=== PATIENT | male | born 1950 | race Caucasian/White ===

== ENCOUNTER 2023-03-31 00:33 | Inpatient (IN) | payer MEDICARE, SELFPAY ==
[2023-03-31] VITALS (29 sets, daily range): BP systolic 93–142; BP diastolic 56–87; PULSE 53–89; RESP 16–24; TEMP 36.2–37.9; O2SAT 88–99; BMI 38.2; BMI 37.9
[2023-03-31 01:03] LABS: Basophils Percent Auto 0.3 % (0.0-3.0); Eosinophils Percent Auto 0.2 % (0.0-7.0); Hemoglobin* 15.6 gm/dL (13.5-17.5); Immature Granulocytes Pct Auto 0.3 %; Lymphocytes Percent Auto 12.8 % (20-44); Mean Corpuscular HGB Conc 33 gm/dL (32-36); Mean Corpuscular Hemoglobin 30 pg (26-34); Mean Corpuscular Volume 89 fL (80-100); Monocytes Percent Auto 5.3 % (0.0-11.0); Neutrophils Percent Auto 81.1 % (42.0-72.0); Platelet Count* 216 K/uL (140-440); RDW Coefficient of Variation % 13.1 % (11.5-15.5); Red Blood Count 5.27 m/uL (4.30-5.90); White Blood Count* 14.45 K/uL (4.50-11.00)
[2023-03-31 01:04] LABS: Chloride* 108 mmol/L (96-114)
[2023-03-31 01:05] LABS: Sodium* 140 mmol/L (135-149)
[2023-03-31 01:06] LABS: Lactate* 1.1 mmol/L (0.5-1.9)
[2023-03-31 01:06] LABS: Slide Review Reflex No
[2023-03-31 01:07] LABS: Creatinine* 0.9 mg/dL (0.5-1.5); Est. Creatinine Clearance* 69.96; Estimated Glomerular Filt Rate 91 ml/min
[2023-03-31 01:08] LABS: Anion Gap 8 mEq/L (7-15); Blood Urea Nitrogen* 22 mg/dL (7-30); Calcium* 9.3 mg/dL (8.4-10.6); Carbon Dioxide* 24 mmol/L (20-32); Glucose* 139 mg/dL (60-115)
--- NOTE | 2023-03-31 01:08 | CRLHL7_ITS ---
For Patients: As a result of the Century Cures Act, medical imaging exams and procedure reports are released immediately into your electronic medical record. You may view this report before your referring provider. If you have questions, please contact your health care provider. INDICATION: Right lower quadrant pain. COMPARISON: None available. TECHNIQUE: CT examination of the abdomen and pelvis was performed with the uneventful intravenous administration of 131 cc of Isovue 370. while 3 mm thick axial sections were obtained from the lung bases through the pubic symphysis. Oral contrast was not administered. Please note that all CT scans at this facility use dose modulation, iterative reconstruction, and/or weight-based dosing when appropriate to reduce radiation dose to as low as reasonably achievable. FINDINGS: In the abdomen, the liver, spleen, pancreas, and adrenals are normal in appearance. There are several parapelvic cysts in the left kidney. The right kidney is normal in appearance. The gallbladder is normal in appearance. The abdominal aorta is normal in caliber with no sign of dilatation. There is no sign of retroperitoneal mass or adenopathy. There is a small hiatal hernia. The rest of the stomach, loops of small bowel, and colon in the abdomen are otherwise normal in appearance. There is a tiny fat containing umbilical hernia. The appendix is mildly dilated at 10 millimeters, with moderate thickening of its painting. There is an appendicular with at the base of the appendix. There is prominent periappendiceal inflammatory stranding, especially proximally, with mild fluid around the base of the appendix. This suggests ruptured appendicitis without distinct abscess formation. There is a small amount of free fluid in the inferior pelvis which is probably related to the fluid around the appendix. There is no sign of any extraluminal gas and no sign of any free air. There is moderate sigmoid diverticulosis without evidence of diverticulitis. The loops of small bowel and rectum in the pelvis are otherwise normal in appearance. The prostate is normal in appearance. The urinary bladder is normal in appearance. There is no sign of pelvic or inguinal mass or adenopathy. There is no sign of free air or free fluid in the abdomen or pelvis. There is mild patchy density in the posterior right lung base and in the posterior and lateral left lung base, probably atelectasis. There is mild anterior wedging of the T8 through T11 vertebral bodies, mild compression fractures of indeterminate age. There is mild L3-4 disc degenerative disease. I discussed the findings with Dr. Hunter at 0156 hours on 03/31/2023. IMPRESSION: CT of the pelvis shows findings of acute appendicitis with fluid around the base of the appendix suggesting rupture. Small amount of free fluid in the pelvis more inferiorly at the midline is probably related to this possible rupture. No sign of an organized abscess. Moderate sigmoid diverticulosis with no sign of diverticulitis. CT of the abdomen shows a small hiatal hernia. Please note that all CT scans at this facility use dose modulation, iterative reconstruction, and/or weight-based dosing when appropriate to reduce radiation dose to as low as reasonably achievable. Dictated by Harris Villafuerte MD @ 03/31/2023 2:02:54 AM (Electronically Signed)
--- NOTE | 2023-03-31 01:13 | ED.GENADULT ---
HPI - General Adult General Chief complaint: Abdominal Pain Stated complaint: Abdominal Pain Time Seen by Provider: 03/31/23 00:51 Source: patient, family and EMS Mode of arrival: EMS History of Present Illness HPI narrative: 72-year-old male with no chronic medical problems presents to the emergency department with right lower quadrant abdominal pain, severe in nature that started at 7:30 a.m. this morning. He was eating pizza at the time. Was accompanied by some mild nausea but no vomiting. No blood in his stools, recent normal bowel movements, no sick contacts, no trauma or injury. Pain is focal, points to the far right lower quadrant area of the abdomen. Reports that it does not radiate. Pain is improved from 7/10 to 2/10 but worsens again with movement after receiving a total of 2 mg of Dilaudid from EMS services. Did have similar symptoms a few months ago that was accompanied by vomiting but resolved without medical intervention or seeking care. He reports that he has a known history of a hernia in his periumbilical area but notes no swelling. No recent fevers, no dysuria. No prior history of abdominal surgeries. He did not try any other interventions at home prior to calling EMS. Past medical history he reports is benign, no major long-term health problems. No long-term prescription medications, no allergies. He has a nonsmoker, denies recent alcohol intake. ROS is notable for the GI symptoms as above only, otherwise denies times 12 systems. Including negative for skin, urinary, musculoskeletal changes. Related Data Home Medications Medication Instructions Recorded Confirmed No Known Home Medications 03/31/23 03/31/23 Allergies Allergy/AdvReac Type Severity Reaction Status Date / Time No Known Drug Allergies Allergy Verified 03/31/23 01:22 [facility] Medical History (Updated 03/31/23 @ 02:09 by Janell Hunter MD) No significant past medical history Surgical History (Updated 03/31/23 @ 02:01 by Alejandro Levin RN) No significant past surgical history Social History Smoking Status: Never smoker Second hand tobacco smoke exposure: No How often do you have a drink containing alcohol: never How often do you have six or more drinks on one occasion: Never AUDIT-C Alcohol total score: 0 Non-prescribed substance use: denies use Exam Const: Vital Signs, click to edit/add: Vital Signs - 24 hr 03/31/23 00:48 03/31/23 00:48 03/31/23 00:48 Temperature 98.2 F Pulse Rate Pulse Rate [Right Pulse Oximeter] 89 Respiratory Rate 18 Blood Pressure Blood Pressure [Ri ght Upper Arm] 137/87 Pulse Oximetry 88 94 94 Oxygen Delivery Me thod Room Air Nasal Cannula Oxygen Flow Rate 2 03/31/23 02:02 Temperature 98.2 F Pulse Rate 63 Pulse Rate [Right Pulse Oximeter] Respiratory Rate 16 Blood Pressure 129/84 Blood Pressure [Ri ght Upper Arm] Pulse Oximetry 99 Oxygen Delivery Me thod Oxygen Flow Rate Documenting provider has reviewed patient's vital signs: yes Other: Mild distress due to pain. moderate historian, likely an effect of the Dilaudid. HENMT: Common normals: normocephalic Head and scalp: normocephalic Face and sinus: normal facial exam Mouth: oral and palatal mucosa normal Throat: posterior oropharynx normal Eye: Common normals: conjunctivae normal General eye: normal appearance of both eyes Conjunctiva: conjunctiva(e) normal Neck & C-Spine: Common normals: no lymphadenopathy Resp: Common normals: normal respiratory effort, no use of accessory muscles and clear to auscultation bilaterally Effort & inspection: able to speak in complete sentences Auscultation: clear to auscultation bilaterally Cardio: Common normals: regular rate, regular rhythm, S1 normal heart sound, S2 normal heart sound and no murmurs Rate: regular rate Rhythm: regular rhythm Heart sounds: S1 normal and S2 normal GI: Other: Bowel sounds are hypoactive. There is a periumbilical hernia that does not seem incarcerated. There is no obvious swelling. He is exhibiting focal tenderness to the right lower quadrant and mild diffuse tenderness otherwise. Guarding is noted in the right lower quadrant. No swelling in the scrotum. No palpable abnormalities in inguinal region. : Common normals: no CVA tenderness and no scrotal swelling Bladder/kidney exam: no CVA tenderness Back & Pelvis: Common normals: no CVA tenderness Extremity: Common normals: normal capillary refill Neuro: Speech: speech normal Motor exam: no movement abnormalities noted Psych: Attitude: calm and engaged Insight: fair Judgement: judgment good Skin: Common normals: no rashes or lesions noted General skin exam: no rashes or lesions noted Course Course Hospital Course: Differential diagnosis including obstruction, appendicitis, diverticulitis, volvulus, incarcerated hernia, pancreatitis, musculoskeletal etiology, among others. No skin findings to suggest shingles. Recommend placing IV, continuing Dilaudid for pain, will give 4 mg of Zofran for the nausea and administer IV fluids while we obtain lab studies and CT scan of the abdomen and pelvis. Reevaluation(s) Time of Reevaluation #1: 02:09 Reevaluation #1: Discussed CT findings with patient, acute appendicitis with possible early rupture. Will start Zosyn. Discussed case with Dr. Hanks. She anticipates appendectomy this morning prior to 1st scheduled case. Will need to admit to the hospitalist team. EKG ordered. Time of Reevaluation #2: 02:15 Reevaluation #2: EKG reviewed, reassuring. Medically cleared for surgery at this time with no additional perioperative recommendations. Will remain NPO, on LR maintenance fluid, awaiting admission and surgery later this morning. Time of Reevaluation #3: 02:17 Reevaluation #3: Accepted by the hospitalist. Planning for surgery at 6:00 a.m. Vital Signs Vital signs: Initial Vital Signs Temperature 98.2 F 03/31/23 00:48 Temperature Source Temporal Artery Scan 03/31/23 00:48 Pulse Rate 89 03/31/23 00:48 Respiratory Rate 18 03/31/23 00:48 Blood Pressure 137/87 03/31/23 00:48 Blood Pressure Mean 103 03/31/23 00:48 Blood Pressure Position Supine 03/31/23 00:48 Pulse Oximetry 88 03/31/23 00:48 Oxygen Delivery Method Room Air 03/31/23 00:48 Oxygen Flow Rate 2 03/31/23 00:48 Vital Signs Temperature 98.2 F 03/31/23 00:48 Pulse Rate 89 03/31/23 00:48 Respiratory Rate 18 03/31/23 00:48 Blood Pressure 137/87 03/31/23 00:48 Pulse Oximetry 88 03/31/23 00:48 Oxygen Delivery Method Room Air 03/31/23 00:48 Oxygen Flow Rate 2 03/31/23 00:48 Temperature 98.2 F 03/31/23 02:02 Pulse Rate 63 03/31/23 02:02 Respiratory Rate 16 03/31/23 02:02 Blood Pressure 129/84 03/31/23 02:02 Pulse Oximetry 99 03/31/23 02:02 Oxygen Delivery Method Nasal Cannula 03/31/23 00:48 Oxygen Flow Rate 2 03/31/23 00:48 Medical Decision Making Lab Data Lab results reviewed: Yes I reviewed the patient's lab results Lab results narrative: Leukocytosis without elevation of CRP. Elevated absolute neutrophil count, normal lactate. Good electrolytes and kidney function. Other than over concentrated urine, not suspicious for infection or other significant pathology. Labs: Lab Results 03/31/23 03/31/23 03/31/23 Range/Units 00:10 00:45 01:20 WBC 14.45 H (4.50-11.00) K/uL RBC 5.27 (4.30-5.90) m/uL Hgb 15.6 (13.5-17.5) gm/dL Hct 47.0 (37.0-53.0) % MCV 89 (80-100) fL MCH 30 (26-34) pg MCHC 33 (32-36) gm/dL RDW Coeff of Johann 13.1 (11.5-15.5) % Plt Count 216 (140-440) K/uL Neut % (Auto) 81.1 H (42.0-72.0) % Lymph % (Auto) 12.8 L (20-44) % Garza % (Auto) 5.3 (0.0-11.0) % Eos % (Auto) 0.2 (0.0-7.0) % Baso % (Auto) 0.3 (0.0-3.0) % Neut # (Auto) 11.70 H (1.7-7.0) K/uL Lymph # (Auto) 1.80 (0.90-2.90) K/uL Garza # (Auto) 0.80 (0.00-0.90) K/UL Eos # (Auto) 0.00 (0.00-0.50) K/uL Baso # (Auto) 0.00 (0.00-0.30) K/uL Abs Immat Gran (auto) 0.00 (0.00-0.30) K/uL Imm/Tot Granulo (auto) 0.3 % Sodium 140 (135-149) mmol/L Potassium 4.0 (3.6-5.1) mmol/L Chloride 108 (96-114) mmol/L Carbon Dioxide 24 (20-32) mmol/L Anion Gap 8 (7-15) mEq/L BUN 22 (7-30) mg/dL Creatinine 0.9 (0.5-1.5) mg/dL Estimated Creat Clear 69.96 Estimated GFR 91 ml/min Glucose 139 H (60-115) mg/dL Lactate 1.1 (0.5-1.9) mmol/L Calcium 9.3 (8.4-10.6) mg/dL Total Bilirubin 0.7 (0.1-1.5) mg/dL Direct Bilirubin 0.1 (0.0-0.5) mg/dL AST 39 H (12-35) U/L ALT 34 (4-50) U/L Alkaline Phosphatase 82 (40-150) U/L C-Reactive Protein < 0.5 L (0.5-1.0) mg/dL Total Protein 7.5 (6.0-8.3) g/dL Albumin 4.0 (3.3-5.0) g/dL Amylase 63 (18-89) U/L Urine Color Yellow (Yellow) Urine Appearance Clear (Clear) Urine pH 5.5 (5.0-8.5) Ur Specific [place] >= 1.030 (1.000-1.030) Urine Protein Negative (Negative) Urine Glucose (UA) Negative (Negative) Urine Ketones Negative (Negative) Urine Blood Trace-intact A (Negative) Urine Nitrite Negative (Negative) Urine Bilirubin Negative (Negative) Urine Urobilinogen 0.2 (0.2-1.0) Ur Leukocyte Esterase Negative (Negative) Urine RBC 0-2 (0-2) Urine WBC 0-2 (0-5) Ur Squamous Epith Cells Few (None-Few) Urine Bacteria Few A (None) Urine Mucus Few A (None) Imaging Data CT scan - abdomen: Attestation: I have reviewed the pertinent imaging results. My impression: Acute appendicitis, no obstruction Radiologist's impression: IMPRESSION: CT of the pelvis shows findings of acute appendicitis with fluid around the base of the appendix suggesting rupture. Small amount of free fluid in the pelvis more inferiorly at the midline is probably related to this possible rupture. No sign of an organized abscess. Moderate sigmoid diverticulosis with no sign of diverticulitis. CT of the abdomen shows a small hiatal hernia. ECG Data Attestation: I personally reviewed and interpreted this ECG as follows: Prior ECG tracings: not available for review Interpretation: Normal sinus rhythm, rate 65. Normal axis. No significant ST or T-wave abnormalities. Single PVC noted. Normal EKG Discharge Plan Discharge Clinical Impression: Acute appendicitis with rupture Patient Disposition: Admitted As Inpatient
[2023-03-31] MEDS: ONDANSETRON 2 MG/ML inj 4 MG IVP ×2 (01:21→05:08)
[2023-03-31] MEDS: 0.9 % SODIUM CHLORIDE 1000 ml 1,000 ML IV (01:22)
[2023-03-31 01:24] LABS: Amylase* 63 U/L (18-89)
[2023-03-31 01:24] LABS: Appearance Urine Clear (Clear); Bilirubin Urine Negative (Negative); Blood Urine Trace-intact (Negative); Color Urine Yellow (Yellow); Glucose Urine Negative (Negative); Ketones Urine Negative (Negative); Leukocyte Esterase Urine Negative (Negative); Nitrite Urine Negative (Negative); Protein Urine Negative (Negative); Specific Gravity Urine >= 1.030 (1.000-1.030); Urobilinogen Urine 0.2 (0.2-1.0); pH Urine 5.5 (5.0-8.5)
[2023-03-31 01:25] LABS: Alanine Aminotransferase* 34 U/L (4-50); Alkaline Phosphatase* 82 U/L (40-150); Aspartate Amino Transferase* 39 U/L (12-35); Bilirubin Direct* 0.1 mg/dL (0.0-0.5); Bilirubin Total* 0.7 mg/dL (0.1-1.5); Total Protein* 7.5 g/dL (6.0-8.3)
[2023-03-31 01:28] LABS: C Reactive Protein* < 0.5 mg/dL (0.5-1.0)
[2023-03-31 01:34] LABS: Bacteria Urine Few; Mucus Urine Few; RBC Urine 0-2 (0-2); Squamous Epithelial Cell Urine Few (None-Few); WBC Urine 0-2 (0-5)
[2023-03-31] MEDS: PIPERACILLIN/TAZOBACTAM 3.375 GM in 0.9 % SODIUM CHLORIDE Mini-bag 100 ML IVPB ×4 (02:09→23:47)
[2023-03-31] MEDS: HYDROmorphone 0.5 mg/0.5 ml inj IVP ×2 (02:14→05:02)
--- NOTE | 2023-03-31 03:55 | P.IMPN_ITS ---
Subjective Date Seen: 03/31/23 Interval history: Remy Carringtonist eHospitalist was contacted with request of consultation on Zackery Mathis. 72-year-old gentleman with no significant past medical history who presented to the hospital complaining of sudden onset of right lower abdominal pain, progress ively worsening, associated with subjective fever and nausea. Patient denies having shaking chills, vomiting or diarrhea. Pain became severe that he had to call 911. At the time of my evaluation, his pain was much better. Home Medications: see EMR Pertinent Medical History: See EMR Pertinent Social History: See EMR Exam (performed via interactive video with assistance of bedside nurse; Camila): General: alert, cooperative, no acute distress HEENT: oral mucosa pink and moist without erythema Lungs: clear to auscultation bilaterally without crackle or wheeze CV: regular rate and rhythm without loud murmur rub or gallop Abd: RLQ tenderness, LLQ tenderness Ext: no pitting edema noted Skin: no rashes, bruises or lesions. Neuro: alert, oriented x 3. facial muscles grossly intact, moves all extremities without any significant focal deficit appreciated by nurse Labs and imaging were reviewed. Assessment and Plan: Acute appendicitis with concern for early rupture CT scan was reviewed ED team contacted general surgery who recommended surgery early in the morning Keep n.p.o. IV fluid Pain control Continue Zosyn Thank you for including Remy Trinidad in the patients care. This service is available for further assistance as requested by your care team by calling [phone]. Exam Const: Vital Signs, click to edit/add: Vital Signs - 24 hr 03/31/23 00:48 03/31/23 00:48 03/31/23 00:48 Temperature 98.2 F Pulse Rate Pulse Rate [Right Pulse Oximeter] 89 Respiratory Rate 18 Blood Pressure Blood Pressure [Ri ght Upper Arm] 137/87 Pulse Oximetry 88 94 94 Oxygen Delivery Me thod Room Air Nasal Cannula Oxygen Flow Rate 2 03/31/23 02:02 03/31/23 02:32 03/31/23 02:48 Temperature 98.2 F 98.2 F 98.2 F Pulse Rate 63 66 Pulse Rate [Right Pulse Oximeter] 79 Respiratory Rate 16 16 16 Blood Pressure 129/84 125/76 Blood Pressure [Ri ght Upper Arm] 125/74 Pulse Oximetry 99 99 99 Oxygen Delivery Me thod Nasal Cannula Oxygen Flow Rate 2 Labs Labs: Laboratory Results - last 24 hr 03/31/23 03/31/23 03/31/23 00:10 00:45 01:20 WBC 14.45 H RBC 5.27 Hgb 15.6 Hct 47.0 MCV 89 MCH 30 MCHC 33 RDW Coeff of Johann 13.1 Plt Count 216 Neut % (Auto) 81.1 H Lymph % (Auto) 12.8 L [place] % (Auto) 5.3 Eos % (Auto) 0.2 Baso % (Auto) 0.3 Neut # (Auto) 11.70 H Lymph # (Auto) 1.80 [place] # (Auto) 0.80 Eos # (Auto) 0.00 Baso # (Auto) 0.00 Abs Immat Gran (auto) 0.00 Imm/Tot Granulo (auto) 0.3 Sodium 140 Potassium 4.0 Chloride 108 Carbon Dioxide 24 Anion Gap 8 BUN 22 Creatinine 0.9 Estimated Creat Clear 69.96 Estimated GFR 91 Glucose 139 H Lactate 1.1 Calcium 9.3 Total Bilirubin 0.7 Direct Bilirubin 0.1 AST 39 H ALT 34 Alkaline Phosphatase 82 C-Reactive Protein < 0.5 L Total Protein 7.5 Albumin 4.0 Amylase 63 Urine Color Yellow Urine Appearance Clear Urine pH 5.5 Ur Specific [place] >= 1.030 Urine Protein Negative Urine Glucose (UA) Negative Urine Ketones Negative Urine Blood Trace-intact A Urine Nitrite Negative Urine Bilirubin Negative Urine Urobilinogen 0.2 Ur Leukocyte Esterase Negative Urine RBC 0-2 Urine WBC 0-2 Ur Squamous Epith Cells Few Urine Bacteria Few A Urine Mucus Few A
[2023-03-31] MEDS: LACTATED RINGERS 1000 ML 1,000 ML 125 ML IV (04:08)
--- NOTE | 2023-03-31 06:16 | PC.NURSE ---
Patient to the unit at 0300. PRN Dilaudid x1 for pain. Zofran x1 for nausea. Pedrito at bedside and supportive. NPO.
[2023-03-31] MEDS: CEFAZOLIN 2 GM INJ IVP (06:34)
[2023-03-31] MEDS: BUPIVACAINE 0.25% 30 ML 20 ML INJECTION (06:54)
--- NOTE | 2023-03-31 06:59 | SUR.OPER ---
PATIENT QUESTIONS ANSWERED SATISFACTORILY PREOPERATIVELY. PATIENT BROUGHT TO OR #3 PER CART. Patient positioned supine on OR #3 bed. The perioperative team supported arms bilaterally on arm boards. Final approval of positioning by surgeon.
--- NOTE | 2023-03-31 08:31 | P.ANES_ITS ---
Anesthesia Charges Start Date/Time Anesthesia Start Date: 03/31/23 Anesthesia Start Time: 06:31 Stop Date/Time Anesthesia Stop Date: 03/31/23 Anesthesia Stop Time: 08:15 Summary Emergency: [facility] Extremes of Age - Over 70 or under 1: [facility]
--- NOTE | 2023-03-31 08:31 | W.ANESCHARGE ---
Anesthesia Charges Start Date/Time Anesthesia Start Date: 03/31/23 Anesthesia Start Time: 06:31 Stop Date/Time Anesthesia Stop Date: 03/31/23 Anesthesia Stop Time: 08:15 Summary Emergency: [facility] Extremes of Age - Over 70 or under 1: P[facility] MOLDER
[2023-03-31] MEDS: fentaNYL 100 MCG/2 ML inj 50 MCG IVP (08:46)
--- NOTE | 2023-03-31 08:58 | PM.GSCN ---
History of Present Illness Consult details Date Seen: 03/31/23 Consult date: 03/31/23 Narrative: Patient presented to the emergency department with worsening right lower quadrant abdominal pain. He states that the pain started around 730 last evening and worsened in intensity. He has had similar pain, about 6 months earlier, but does report that that was associated with persistent nausea and did resolve on its own. This pain has not gotten better, he does report a decrease in appetite but no nausea or vomiting. Denies any diarrhea or constipation. He has never had abdominal surgery before. He is otherwise healthy. Review of Systems Status of ROS: Reports: 6 or more systems reviewed and unremarkable except as noted in History and below [facility] Medical History (Updated 03/31/23 @ 02:09 by Janell Hunter MD) No significant past medical history Surgical History (Updated 03/31/23 @ 02:01 by Alejandro Levin RN) No significant past surgical history Social History What is your current living situation?: I presently have a place to live Problems where you live: no known problems Problems where you live details: n/a In the past 12 months, utilities in danger of being shut off: no In the past 12 mos, have been you worried that your food would run out before you had money to buy more?: never true In the past 12 mos, the food you bought just didn't last and you didn't have money to buy more?: never true Highest level of school completed/degree received: some college, no degree Smoking Status: Never smoker Do you use any of these nicotine containing products: None Second hand tobacco smoke exposure: No How often do you have a drink containing alcohol: never How often do you have six or more drinks on one occasion: Never AUDIT-C Alcohol total score: 0 Non-prescribed substance use: denies use Caffeine: Yes How often does anyone, including family, friends and others, physically hurt you: never How often does anyone, including family, friends and others, insult or talk down to you: never How often does anyone, including family, friends and others, threaten you with harm: never How often does anyone, including family, friends and others, scream or curse at you: never service: Yes Meds Home Medications and Allergies Home Medications Medication Instructions Recorded Confirmed Type No Known Home Medications 03/31/23 03/31/23 History Allergies Allergy/AdvReac Type Severity Reaction Status Date / Time No Known Drug Allergies Allergy Verified 03/31/23 01:22 Exam Narrative: Exam Narrative: General: Alert and oriented, no acute distress. Nontoxic in appearance Respiratory: Equal breath rise, maintained on room air. Clear breath sounds bilaterally CV: Regular rhythm rate, well perfused Abdomen: Soft, mild distention guarding with some rebound in the right lower quadrant. Const: Vital Signs, click to edit/add: Vital Signs - 24 hr 03/31/23 00:48 03/31/23 00:48 03/31/23 00:48 Temperature 98.2 F Pulse Rate Pulse Rate [Pulse Oximeter] Pulse Rate [Right Pulse Oximeter] 89 Respiratory Rate 18 Blood Pressure Blood Pressure [Ri ght Arm] Blood Pressure [Ri ght Upper Arm] 137/87 Pulse Oximetry 88 94 94 Oxygen Delivery Me thod Room Air Nasal Cannula Oxygen Flow Rate 2 03/31/23 02:02 03/31/23 02:32 03/31/23 02:48 Temperature 98.2 F 98.2 F 98.2 F Pulse Rate 63 66 Pulse Rate [Pulse Oximeter] Pulse Rate [Right Pulse Oximeter] 79 Respiratory Rate 16 16 16 Blood Pressure 129/84 125/76 Blood Pressure [Ri ght Arm] Blood Pressure [Ri ght Upper Arm] 125/74 Pulse Oximetry 99 99 99 Oxygen Delivery Me thod Nasal Cannula Oxygen Flow Rate 2 03/31/23 04:26 03/31/23 05:14 03/31/23 08:15 Temperature 97.3 F L 97.2 F L 98.4 F Pulse Rate 71 Pulse Rate [Pulse Oximeter] 69 67 Pulse Rate [Right Pulse Oximeter] Respiratory Rate 20 22 24 Blood Pressure 121/66 Blood Pressure [Ri ght Arm] 142/85 H 131/80 Blood Pressure [Ri ght Upper Arm] Pulse Oximetry 91 92 94 Oxygen Delivery Me thod Room Air Nasal Cannula Non Rebreather Mas k Oxygen Flow Rate 1.0 4 03/31/23 08:20 03/31/23 08:25 03/31/23 08:30 Temperature 98.7 F Pulse Rate 69 72 73 Pulse Rate [Pulse Oximeter] Pulse Rate [Right Pulse Oximeter] Respiratory Rate 24 24 24 Blood Pressure 123/61 118/66 102/68 Blood Pressure [Ri ght Arm] Blood Pressure [Ri ght Upper Arm] Pulse Oximetry 94 94 Oxygen Delivery Me thod Non Rebreather Mas k Non Rebreather Mas k Non Rebreather Mas k Oxygen Flow Rate 4 4 4 03/31/23 08:35 03/31/23 08:40 Temperature 98.5 F Pulse Rate 67 70 Pulse Rate [Pulse Oximeter] Pulse Rate [Right Pulse Oximeter] Respiratory Rate 24 24 Blood Pressure 120/65 118/67 Blood Pressure [Ri ght Arm] Blood Pressure [Ri ght Upper Arm] Pulse Oximetry 94 Oxygen Delivery Me thod Non Rebreather Mas k Non Rebreather Mas k Oxygen Flow Rate 4 4 Results Labs Labs: Abnormal lab results 03/31/23 03/31/23 Range/Units 00:45 01:20 WBC 14.45 H (4.50-11.00) K/uL Neut % (Auto) 81.1 H (42.0-72.0) % Lymph % (Auto) 12.8 L (20-44) % Neut # (Auto) 11.70 H (1.7-7.0) K/uL Glucose 139 H (60-115) mg/dL AST 39 H (12-35) U/L C-Reactive Protein < 0.5 L (0.5-1.0) mg/dL Urine Blood Trace-intact A (Negative) Urine Bacteria Few A (None) Urine Mucus Few A (None) Diabetes panel 03/31/23 Range/Units 00:45 Sodium 140 (135-149) mmol/L Potassium 4.0 (3.6-5.1) mmol/L Chloride 108 (96-114) mmol/L Carbon Dioxide 24 (20-32) mmol/L BUN 22 (7-30) mg/dL Creatinine 0.9 (0.5-1.5) mg/dL Glucose 139 H (60-115) mg/dL Calcium 9.3 (8.4-10.6) mg/dL AST 39 H (12-35) U/L ALT 34 (4-50) U/L Alkaline Phosphatase 82 (40-150) U/L Total Protein 7.5 (6.0-8.3) g/dL Albumin 4.0 (3.3-5.0) g/dL Calcium panel 03/31/23 Range/Units 00:45 Calcium 9.3 (8.4-10.6) mg/dL Albumin 4.0 (3.3-5.0) g/dL Pituitary panel 03/31/23 Range/Units 00:45 Sodium 140 (135-149) mmol/L Potassium 4.0 (3.6-5.1) mmol/L Chloride 108 (96-114) mmol/L Carbon Dioxide 24 (20-32) mmol/L BUN 22 (7-30) mg/dL Creatinine 0.9 (0.5-1.5) mg/dL Glucose 139 H (60-115) mg/dL Calcium 9.3 (8.4-10.6) mg/dL Adrenal panel 03/31/23 Range/Units 00:45 Sodium 140 (135-149) mmol/L Potassium 4.0 (3.6-5.1) mmol/L Chloride 108 (96-114) mmol/L Carbon Dioxide 24 (20-32) mmol/L BUN 22 (7-30) mg/dL Creatinine 0.9 (0.5-1.5) mg/dL Glucose 139 H (60-115) mg/dL Calcium 9.3 (8.4-10.6) mg/dL Total Bilirubin 0.7 (0.1-1.5) mg/dL AST 39 H (12-35) U/L ALT 34 (4-50) U/L Alkaline Phosphatase 82 (40-150) U/L Total Protein 7.5 (6.0-8.3) g/dL Albumin 4.0 (3.3-5.0) g/dL All other labs normal. Imaging Abdomen CT scan report/results: report reviewed and image reviewed Assessment and Plan Assessment and plan (1) Acute appendicitis with rupture: Status: Acute Plan The patient presented with a history, exam and imaging findings consistent with acute appendicitis. CT imaging was reviewed, there is some fluid around the appendix as well as several fecaliths. Concern for perforation without organized abscess. I discussed the treatment options with the patient including non-surgical and surgical options. I recommended laparoscopic appendectomy. The risks of surgery were reviewed with the patient including the risks of bleeding, post-operative wound or intra-abdominal infection, injury to abdominal structures and possible conversion to an open operation. We also discussed anesthetic complications including NV, stroke, respiratory failure and blood clots. The patient voiced an understanding of our conversation, had the opportunity to ask questions, agreed to accept the risks of surgery and asked that we proceed with surgery.
--- NOTE | 2023-03-31 09:00 | PM.GSPRC ---
Operative Note Pre-op diagnosis: Acute appendicitis Post-op diagnosis: Acute appendicitis, perforated Type of Procedure: Laparoscopic appendectomy Indications: Patient is a 72-year-old male who presented to the emergency department with clinical workup and history consistent with a acute appendicitis. Risks and benefits of operative intervention were discussed at length with the patient. Risks included but was not limited to: Bleeding, infection, risk of damage to surrounding structures, possible need for additional procedures, possible need to convert to an open operation and postoperative complications such as pneumonia, pulmonary emboli or MA. All questions and concerns were addressed with the patient agreeing to proceed. Procedure Description: After discussing the risks and benefits of the procedure, the patient signed informed consent.? The operative site was marked and the patient was brought to the operating room and placed on the operating table in supine position.? Care was taken to pad the patient's pressure points.?? The patient was then intubated by anesthesia.?? The operative site was then prepped and draped in the usual sterile fashion.? A time-out was then performed. Entrance to the abdomen was obtained via a 5 mm optical trocar in the left upper quadrant. The abdomen was insufflated and briefly surveyed for any signs of injury. There were none. There was evidence of erythema and irritation to the anterior abdominal wall within the lower pelvis. Fibrinous exudate was also apparent throughout the small bowel and purulence was seen within the pelvis. A 12 mm port was placed lateral to the umbilicus as well as a 5 mm port in the left lower quadrant under direct vision. The patient was then placed in Trendelenburg position with the right side up. The small bowel was inflamed, but able to be gently moved out of the way and the appendix was in view. There was a large amount surrounding purulence and a few small stool balls seen in the area. The stool was removed from the abdomen. The surrounding adhesions were bluntly taken down and with the use of electrocautery, taking care not to injure any surrounding bowel. There was a significant amount of surrounding inflammation and inflamed fat. The appendix tip was grasped and pulled into view. Evidence of perforation and an area of necrosis at the base of the appendix. A mesenteric window was created between the base of the appendix and the mesoappendix. A 45 mm Endo-ANIL vascular load staple was used to take the mesoappendix. The staple line was inspected for bleeding and there was none. Several bowel load staplers were used to take a small portion of the cecum, given the area of perforation at the base of the appendix. Care was taken not to impinge on the ileocecal valve. The staple line was inspected and was healthy in appearance with adequate hemostasis. The appendix was then removed from the abdomen using an Endo-Catch bag. The specimen was sent to pathology. The 12 mm port site fascia was closed with 0 Vicryl via the Adrián-Alex. All other ports removed under direct visualization. The skin was then closed with absorbable subcuticular suture. Sterile dressings were then applied. Instrument sponge and needle counts were correct at the end of the case. The patient was then woken and transported to the PACU in stable condition. Findings: Perforated appendicitis, ruptured at the base of the appendix. Anesthesia: GETA Surgeon: Britney Hanks MD Estimated blood loss (mL): 5 Specimen: Appendix Condition: stable Disposition: PACU Date of procedure: 03/31/23
[2023-03-31] MEDS: 0.9 % SODIUM CHLORIDE 1000 ml 1,000 ML 125 ML IV ×2 (09:22→19:27)
--- NOTE | 2023-03-31 09:47 | PM.IMHP1 ---
Hospitalist- H&P: HPI History of Present Illness Time Seen by Provider: 09:15 Date Seen: 03/31/23 Chief complaint: Abdominal Pain Narrative: Zackery Mathis is a 72 year old man, usually healthy, presented with chief complaint of sudden onset right lower quadrant abdominal pain, unrelenting, worsening, associated with subjective sense of fever and nausea. Denied rigors, diaphoresis, vomiting, diarrhea. No recent trauma or travel. Pain was so severe he called 911 to be brought in for assessment. Found to have acute appendicitis and possible rupture when assessed in the emergency department at [facility]. White count elevated near 15,000. CT scan of abdomen and pelvis demonstrated acute appendicitis with fluid around the base of the appendix suggestive of a rupture. Small amount of free fluid in the pelvis more inferiorly at the midline again suggestive of possible rupture. No indication of organized abscess. Moderate sigmoid diverticulosis without evidence of diverticulitis. Small hiatal hernia noted. Patient received IV antibiotic, Zosyn, then brought to the operating room. He is now back from the operating room and indicates he is feeling better. I have not had an opportunity to speak with the surgeon about his condition and a surgical note is not yet available. Review of Systems Status of ROS: Reports: 10 or more systems reviewed and unremarkable except as noted in History and below Narrative: Generally healthy. Has not seen a physician for about 10 years. Previously occasionally saw physicians with the [facility] clinic. Takes no medications except for multivitamins. Denies use of any street or recreational drugs. Physically active in able. Denies angina or anginal equivalent, syncope or near syncope, cough, dyspnea at rest, dyspnea with exertion, paroxysmal nocturnal dyspnea, orthopnea. Denies palpitations or fluttering. Denies claudication. No myalgias or arthralgias. Generally satisfied with bowel and bladder habits. [facility] Medical History No significant past medical history Surgical History (Updated 03/31/23 @ 09:44 by Delvis Rae MD) Status post colonoscopy ?Z98.890 - Other specified postprocedural states (ICD-10) History of basal cell carcinoma (BCC) excision ?Z98.890 - Other specified postprocedural states (ICD-10) ?Z85.828 - Personal history of other malignant neoplasm of skin (ICD-10) Status post total right knee replacement ?Z96.651 - Presence of right artificial knee joint (ICD-10) No significant past surgical history Family History (Updated 03/31/23 @ 09:43 by Delvis Rae MD) Father Lung cancer Mother Arthritis Social History (Updated 03/31/23 @ 09:46 by Delvis Rae MD) Narrative: Lives with . Retired. Full resuscitation in event of cardiopulmonary demise. Designates his , Sarah, as power of estate attorney for health should that be required, phone number [phone]. Has never used tobacco products. Quit drinking alcoholic beverages in 1979. What is your current living situation?: I presently have a place to live Problems where you live: no known problems Problems where you live details: n/a In the past 12 months, utilities in danger of being shut off: no In the past 12 mos, have been you worried that your food would run out before you had money to buy more?: never true In the past 12 mos, the food you bought just didn't last and you didn't have money to buy more?: never true Highest level of school completed/degree received: some college, no degree Smoking Status: Never smoker Do you use any of these nicotine containing products: None Second hand tobacco smoke exposure: No How often do you have a drink containing alcohol: never How often do you have six or more drinks on one occasion: Never AUDIT-C Alcohol total score: 0 Non-prescribed substance use: denies use Caffeine: Yes How often does anyone, including family, friends and others, physically hurt you: never How often does anyone, including family, friends and others, insult or talk down to you: never How often does anyone, including family, friends and others, threaten you with harm: never How often does anyone, including family, friends and others, scream or curse at you: never service: Yes Meds Home Medications and Allergies Home Medications Medication Instructions Recorded Confirmed Type No Known Home Medications 03/31/23 03/31/23 History Allergies Allergy/AdvReac Type Severity Reaction Status Date / Time No Known Drug Allergies Allergy Verified 03/31/23 01:22 Exam Narrative: Exam Narrative: I examined the patient postoperatively in his hospital room. He is sleepy but easily arousable and talkative. Appears comfortable. No acute distress. Vision and hearing are grossly normal. Alert and oriented to self, place, time, situation. Worried about his who has a doctor's appointment later today. Friendly, articulate, cooperative. Mood and affect are congruent. Neck is supple. Midline trachea. No JVD or hepatojugular reflux. No carotid bruits. No head and neck lymphadenopathy. Lungs are clear to auscultation. Room air oxygen saturations variable, 86% when sleepy, 92% to 1 awakened talking. Heart tones with regular rhythm, normal S1-S2, without murmur, gallop, or rub. Abdomen is soft at this time. Extremities without edema. No focal motor neurologic deficits. Able to transfer to his hospital bed with only standby assist in his sleepy state. Cranial nerves 3-12 grossly normal. Skin is dry and intact. I do not examine the surgical site. Const: Vital Signs, click to edit/add: Vital Signs - 24 hr 03/31/23 00:48 03/31/23 00:48 03/31/23 00:48 Temperature 98.2 F Pulse Rate Pulse Rate [Pulse Oximeter] Pulse Rate [Right Pulse Oximeter] 89 Respiratory Rate 18 Blood Pressure Blood Pressure [Ri ght Arm] Blood Pressure [Ri ght Upper Arm] 137/87 Pulse Oximetry 88 94 94 Oxygen Delivery Me thod Room Air Nasal Cannula Oxygen Flow Rate 2 03/31/23 02:02 03/31/23 02:32 03/31/23 02:48 Temperature 98.2 F 98.2 F 98.2 F Pulse Rate 63 66 Pulse Rate [Pulse Oximeter] Pulse Rate [Right Pulse Oximeter] 79 Respiratory Rate 16 16 16 Blood Pressure 129/84 125/76 Blood Pressure [Ri ght Arm] Blood Pressure [Ri ght Upper Arm] 125/74 Pulse Oximetry 99 99 99 Oxygen Delivery Me thod Nasal Cannula Oxygen Flow Rate 2 03/31/23 04:26 03/31/23 05:14 03/31/23 08:15 Temperature 97.3 F L 97.2 F L 98.4 F Pulse Rate 71 Pulse Rate [Pulse Oximeter] 69 67 Pulse Rate [Right Pulse Oximeter] Respiratory Rate 20 22 24 Blood Pressure 121/66 Blood Pressure [Ri ght Arm] 142/85 H 131/80 Blood Pressure [Ri ght Upper Arm] Pulse Oximetry 91 92 94 Oxygen Delivery Me thod Room Air Nasal Cannula Non Rebreather Mas k Oxygen Flow Rate 1.0 4 03/31/23 08:20 03/31/23 08:25 03/31/23 08:30 Temperature 98.7 F Pulse Rate 69 72 73 Pulse Rate [Pulse Oximeter] Pulse Rate [Right Pulse Oximeter] Respiratory Rate 24 24 24 Blood Pressure 123/61 118/66 102/68 Blood Pressure [Ri ght Arm] Blood Pressure [Ri ght Upper Arm] Pulse Oximetry 94 94 Oxygen Delivery Me thod Non Rebreather Mas k Non Rebreather Mas k Non Rebreather Mas k Oxygen Flow Rate 4 4 4 03/31/23 08:35 03/31/23 08:40 03/31/23 09:00 Temperature 98.5 F 98.8 F Pulse Rate 67 70 74 Pulse Rate [Pulse Oximeter] Pulse Rate [Right Pulse Oximeter] Respiratory Rate 24 24 16 Blood Pressure 120/65 118/67 Blood Pressure [Ri ght Arm] 117/67 Blood Pressure [Ri ght Upper Arm] Pulse Oximetry 94 Oxygen Delivery Me thod Non Rebreather Mas k Non Rebreather Mas k Room Air Oxygen Flow Rate 4 4 03/31/23 09:15 03/31/23 09:30 Temperature Pulse Rate Pulse Rate [Pulse Oximeter] 66 70 Pulse Rate [Right Pulse Oximeter] Respiratory Rate 16 16 Blood Pressure Blood Pressure [Ri ght Arm] 121/77 117/73 Blood Pressure [Ri ght Upper Arm] Pulse Oximetry 97 98 Oxygen Delivery Me thod OxyMask OxyMask Oxygen Flow Rate 4 4 Hospitalist - H&P: Result Labs Labs: Short CBC 03/31/23 Range/Units 00:45 WBC 14.45 H (4.50-11.00) K/uL Hgb 15.6 (13.5-17.5) gm/dL Hct 47.0 (37.0-53.0) % Plt Count 216 (140-440) K/uL BMP 03/31/23 00:45 Sodium 140 Potassium 4.0 Chloride 108 Carbon Dioxide 24 BUN 22 Creatinine 0.9 Glucose 139 H Calcium 9.3 Liver Function 03/31/23 Range/Units 00:45 Total Bilirubin 0.7 (0.1-1.5) mg/dL Direct Bilirubin 0.1 (0.0-0.5) mg/dL AST 39 H (12-35) U/L ALT 34 (4-50) U/L Alkaline Phosphatase 82 (40-150) U/L Albumin 4.0 (3.3-5.0) g/dL Urine 03/31/23 Range/Units 01:20 Urine Color Yellow (Yellow) Urine Appearance Clear (Clear) Urine pH 5.5 (5.0-8.5) Ur Specific [place] >= 1.030 (1.000-1.030) Urine Protein Negative (Negative) Urine Glucose (UA) Negative (Negative) ECG Attestation: I personally reviewed and interpreted this ECG as follows: ECG interpretation date: 03/31/23 ECG interpretation time: 09:30 Interpretation: Normal sinus rhythm with occasional VPC. Imaging CT scan of abdomen and pelvis: Attestation: I have reviewed the pertinent imaging results. Radiologist's impression: 03/31/2023 Appendix mildly dilated at 10 mm with moderate thickening of its painting. Prominent periappendiceal inflammatory stranding with mild fluid around the base of the appendix suggestive of ruptured appendicitis without distinct abscess formation. Moderate sigmoid diverticulosis with no sign of diverticulitis noted. Small hiatal hernia. Assessment and Plan Assessment and plan (1) Acute appendicitis with rupture: Status: Acute Plan 1. Reviewed impression with patient, , son, daughter. Answered their questions. 2. Patient subjectively much improved status post surgery. 3. Postoperatively doing well at this time. 4. Agree with ongoing antibiotics per surgery orders. 5. Hospitalist are available to support if needed. Please let hospitalist know if there is anything else we can do to support the care of this patient.
[2023-03-31] MEDS: ACETAMINOPHEN 325 MG TABLET 650 MG PO ×2 (14:30→19:32)
--- NOTE | 2023-03-31 14:30 | PC.NURSE ---
Notified Dr. Hanks that patient has a temperature of 100.3 and also very drowsy. No narcotics have been given since return from OR at 0900. Per Dr. Hanks, is too be expected on day 0, alternate tylenol/motrin and continue to monitor temperature. Drowsiness could be related to fever but could be related to anesthesia yet. Call if patient condition changes for the worse. No cultures or labs needed at this time.
--- NOTE | 2023-03-31 14:46 | PC.NURSE ---
End of shift note: Patient is a post op of today for a ruptured appendicitis. Patient returned from OR at 0900. Patient has been up to chair, ambulated to bathroom with assist of 2 due to weakness, voided X1 but was not measured but a good amount. Has been tolerating clear liquids. Denies nausea. Pain is 2/10. Ice pack to incision. Tylenol given for pain and temp of 100.3. See previous nurse note in regards to this. Patient is alert and oriented but very drowsy yet. No narcotics given since return from OR. Normal saline running at 125cc/hr. Bowel sounds are hypoactive. Lung sounds diminished- IS started for this. Patient has been on and off oxygen. When awake, no oxygen needed, but when sleeping, 2L NC needed. Patients family were here on and off today. 3 lap Incisions are clean, dry and intact. Receiving IV antibiotics. Pleasant and cooperative.
[2023-03-31] MEDS: IBUPROFEN 600 MG TABLET PO (19:31)
[2023-03-31] MEDS: BENZOCAINE/MENTHOL 1 EACH LOZENGE MUCOUS MEM (20:55)
--- NOTE | 2023-03-31 22:42 | PC.NURSE ---
End of Shift: Patient pleasant and cooperative, and drowsy all shift. Patient vitally stable, lungs clear, BS WNL, IV running NS at 125. Patient rates pain at most 3/10, tylenol and ibuprofen given once. Patient 1 assist, walker, and has been up in the chair and walked the escobar. Patient tolerating clears taking in popsicles and juice along with water. Patient was nervous to ambulate and requested walker when patient could walk independently. Patient currently sleeping comfortably in recliner. Abdominal lap sites x3 C/D/I.
[2023-04-01] MEDS: ACETAMINOPHEN 325 MG TABLET 650 MG PO ×3 (00:14→17:56)
[2023-04-01 03:00] VITALS: BP 100/65; PULSE 57; RESP 16; TEMP 36.1; O2SAT 95
[2023-04-01] MEDS: 0.9 % SODIUM CHLORIDE 1000 ml 1,000 ML 125 ML IV ×3 (03:04→20:14)
[2023-04-01] MEDS: PIPERACILLIN/TAZOBACTAM 3.375 GM in 0.9 % SODIUM CHLORIDE Mini-bag 100 ML IVPB ×4 (06:09→23:40)
--- NOTE | 2023-04-01 06:36 | PC.NURSE ---
Alert and oriented x 4. Patient reporting that he feels less groggy than when he was first out of surgery. Speech clear and appropriate. Ambulates with SBA with walker, transfers independently. Pain to abdomen reported, received PRN tylenol for discomfort and was effective. Lap sites to left abdomen free of any signs or symptoms of infection, steri strips intact. Abdomen round and tender to palpation, bowel sounds hypoactive through all quadrants. Denies any nausea or vomiting, denies passing any flatus. Tolerating liquids.
[2023-04-01 06:43] LABS: Basophils Percent Auto 0.2 % (0.0-3.0); Eosinophils Percent Auto 0.2 % (0.0-7.0); Hematocrit 42.1 % (37.0-53.0); Hemoglobin* 13.7 gm/dL (13.5-17.5); Immature Granulocytes Pct Auto 0.3 %; Lymphocytes Percent Auto 13.9 % (20-44); Mean Corpuscular HGB Conc 33 gm/dL (32-36); Mean Corpuscular Hemoglobin 30 pg (26-34); Mean Corpuscular Volume 92 fL (80-100); Neutrophils Percent Auto 81.4 % (42.0-72.0); Platelet Count* 195 K/uL (140-440); RDW Coefficient of Variation % 13.8 % (11.5-15.5); Red Blood Count 4.58 m/uL (4.30-5.90); White Blood Count* 18.83 K/uL (4.50-11.00)
[2023-04-01 06:47] LABS: Slide Review Reflex No
[2023-04-01 06:57] LABS: Chloride* 102 mmol/L (96-114); Potassium* 3.9 mmol/L (3.6-5.1); Sodium* 136 mmol/L (135-149)
[2023-04-01 07:00] LABS: Anion Gap 8 mEq/L (7-15); Blood Urea Nitrogen* 26 mg/dL (7-30); Calcium* 8.7 mg/dL (8.4-10.6); Carbon Dioxide* 26 mmol/L (20-32); Creatinine* 1.4 mg/dL (0.5-1.5); Est. Creatinine Clearance* 49.97; Estimated Glomerular Filt Rate 54 ml/min; Glucose* 91 mg/dL (60-115)
[2023-04-01 08:25] VITALS: BP 111/66; PULSE 62; RESP 18; TEMP 36.2; O2SAT 97
--- NOTE | 2023-04-01 11:25 | PM.GSPN ---
Subjective Subjective Date Seen: 04/01/23 Interval history: Patient is doing well this morning. He does have some pain at the incision sites and in the right lower quadrant, but it is better than yesterday. Most of his pain comes with ambulation and soreness of the muscles. He has been passing a copious amount of gas. He has been tolerating clear liquids and does want to advance his diet. He has been ambulating with nursing. No fevers overnight. Exam Narrative: Exam Narrative: General: Alert and oriented, no acute distress. Nontoxic in appearance. Respiratory: Equal breath rise bilaterally, maintained on room air CV: Well perfused Abdomen: Soft, appropriately tender over incision sites in the right lower quadrant with no guarding or rebound. Nondistended. Const: Vital Signs, click to edit/add: Vital Signs - 24 hr 03/31/23 12:00 03/31/23 12:57 03/31/23 13:00 Temperature 99.0 F 99.1 F 99.3 F Pulse Rate [Apical ] Pulse Rate [Pulse Oximeter] 78 70 65 Respiratory Rate 16 16 16 Blood Pressure [Ri ght Arm] 109/65 108/61 104/62 Pulse Oximetry 93 95 93 Oxygen Delivery Me thod Room Air Room Air Room Air Oxygen Flow Rate 03/31/23 14:00 03/31/23 14:30 03/31/23 15:00 Temperature 100.3 F H Pulse Rate [Apical ] Pulse Rate [Pulse Oximeter] 71 66 Respiratory Rate 16 16 Blood Pressure [Ri ght Arm] 113/64 113/68 Pulse Oximetry 94 94 96 [facility] Nasal Cannula Nasal Cannula Oxygen Flow Rate 2 2 03/31/23 15:27 03/31/23 15:27 03/31/23 15:55 Temperature 98.8 F 98.8 F Pulse Rate [Apical ] Pulse Rate [Pulse Oximeter] 64 64 Respiratory Rate 24 24 Blood Pressure [Ri ght Arm] 113/70 Pulse Oximetry 95 Oxygen Delivery Me thod Room Air Oxygen Flow Rate 03/31/23 19:33 03/31/23 23:00 04/01/23 03:00 Temperature 97.9 F 97.3 F L 96.9 F L Pulse Rate [Apical ] Pulse Rate [Pulse Oximeter] 60 53 L 57 L Respiratory Rate 24 18 16 Blood Pressure [Ri ght Arm] 128/70 93/56 L 100/65 Pulse Oximetry 92 94 95 Oxygen Delivery Me thod Room Air Room Air Room Air Oxygen Flow Rate 04/01/23 08:25 Temperature 97.1 F L Pulse Rate [Apical ] 62 Pulse Rate [Pulse Oximeter] Respiratory Rate 18 Blood Pressure [Ri ght Arm] 111/66 Pulse Oximetry 97 Oxygen Delivery Me thod Room Air Oxygen Flow Rate Labs/Imaging Labs Labs: WBC is trending up (14--18) Imaging Imaging: No new imaging Progress Note: A&P Assessment and plan (1) Acute appendicitis with rupture: Status: Acute Assessment and Plan: Patient is postop day 1 acute appendicitis with evidence of rupture. He did have some low-grade fevers postoperatively, afebrile overnight. His WBC is trending up, which is not surprising giving the amount of intra-abdominal contamination. At this time he is tolerating clear liquids and will slowly advanced diet. Will continue with IV antibiotics. -full liquids, advanced slowly -IV fluids, DC when adequate p.o. intake -continue with IV Zosyn -encourage ambulation -SCDs and Lovenox for DVT prophylaxis -IV and p.o. pain meds as needed
[2023-04-01 11:40] VITALS: BP 122/72; PULSE 60; RESP 24; TEMP 36.2; O2SAT 97
[2023-04-01] MEDS: OXYCODONE 5 MG TABLET PO ×3 (13:47→23:47)
[2023-04-01 15:00] VITALS: BP 112/67; PULSE 69; RESP 18; TEMP 36.5; O2SAT 93
[2023-04-01 19:00] VITALS: BP 111/62; PULSE 77; RESP 18; TEMP 36.8; O2SAT 93
[2023-04-01] MEDS: ENOXAPARIN 40 MG/0.4 ML INJ SUBCUT (21:13)
[2023-04-01] MEDS: HYDROmorphone 0.5 mg/0.5 ml inj IVP (21:13)
--- NOTE | 2023-04-01 22:55 | PC.NURSE ---
End of Shift: Patient pleasant and cooperative. Afebrile. Rating pain in abdomen up to 5/10 and PRN Oxycodone and Dilaudid given x1. Tolerating full liquid diet with no nausea. Passing flatus, no BM. Up to chair and walking in hallway independently, Steri-stips to abdomen intact with old dried drainage.
[2023-04-01 23:30] VITALS: BP 111/73; PULSE 64; RESP 18; TEMP 36.4; O2SAT 93
[2023-04-02] VITALS (8 sets, daily range): BP systolic 110–134; BP diastolic 66–76; PULSE 68–84; RESP 16–27; TEMP 36.5–37.1; O2SAT 92–96
[2023-04-02] MEDS: OXYCODONE 5 MG TABLET PO ×3 (04:13→14:13)
[2023-04-02] MEDS: 0.9 % SODIUM CHLORIDE 1000 ml 1,000 ML 125 ML IV (04:14)
[2023-04-02] MEDS: PIPERACILLIN/TAZOBACTAM 3.375 GM in 0.9 % SODIUM CHLORIDE Mini-bag 100 ML IVPB ×4 (05:56→23:50)
--- NOTE | 2023-04-02 08:08 | PC.NURSE ---
Pt alert and oriented x3. Afebrile. Pt reports 6/10 pain in abdomen, pain managed with PRN medications. Pt gas 3 steri strip dressing that are CDI. Pt has active bowel sounds, is voiding, and had a smear BM overnight. Pt is tolerating regular diet and is up ad chloé in room. Pt wt was taken this morning per pt request and was 274.8 lbs with standing scale. Pt requested labs be drawn this morning to ensure WBCs were treading downward after pervious blood draws elevated WBCs, headline writer updated on coming RN to notify surgeon. Pt slept intermittently throughout night.
[2023-04-02] MEDS: ACETAMINOPHEN 325 MG TABLET 650 MG PO ×3 (08:39→21:40)
[2023-04-02 09:19] LABS: Basophils Percent Auto 0.1 % (0.0-3.0); Eosinophils Percent Auto 0.4 % (0.0-7.0); Hematocrit 42.2 % (37.0-53.0); Hemoglobin* 13.7 gm/dL (13.5-17.5); Immature Granulocytes Pct Auto 0.5 %; Lymphocytes Percent Auto 10.6 % (20-44); Mean Corpuscular HGB Conc 33 gm/dL (32-36); Mean Corpuscular Hemoglobin 30 pg (26-34); Mean Corpuscular Volume 91 fL (80-100); Monocytes Percent Auto 5.2 % (0.0-11.0); Neutrophils Percent Auto 83.2 % (42.0-72.0); Platelet Count* 177 K/uL (140-440); RDW Coefficient of Variation % 13.4 % (11.5-15.5); Red Blood Count 4.62 m/uL (4.30-5.90); White Blood Count* 13.08 K/uL (4.50-11.00)
[2023-04-02 09:34] LABS: Slide Review Reflex No
--- NOTE | 2023-04-02 10:40 | PM.GSPN ---
Subjective Subjective Date Seen: 04/02/23 Interval history: Patient is doing well this morning. He states that he had a hard time sleeping last night. This morning his stomach was ?gurgling?, but feels more settled now. He has been ambulating. He does not yet feel ready to go home. No fevers overnight. Exam Narrative: Exam Narrative: General: Alert and oriented, no acute distress. Nontoxic in appearance Abdomen: Soft, appropriately tender over incision sites. Middle incision with some slight erythema surrounding it, will keep a close eye on it but no current concern for infection. Steri-Strips are in place. Const: Vital Signs, click to edit/add: Vital Signs - 24 hr 04/01/23 11:40 04/01/23 15:00 04/01/23 15:00 Temperature 97.1 F L 97.7 F Pulse Rate [Apical ] 69 69 Pulse Rate [Pulse Oximeter] 60 Respiratory Rate 24 18 18 Blood Pressure [Ri ght Arm] 122/72 112/67 Pulse Oximetry 97 93 Oxygen Delivery Me thod Room Air Room Air 04/01/23 19:00 04/01/23 23:30 04/01/23 23:30 Temperature 98.3 F 97.6 F Pulse Rate [Apical ] 64 64 Pulse Rate [Pulse Oximeter] 77 64 64 Respiratory Rate 18 18 18 Blood Pressure [Ri ght Arm] 111/62 111/73 Pulse Oximetry 93 93 Oxygen Delivery Me thod Room Air Room Air 04/02/23 04:20 04/02/23 07:00 04/02/23 08:00 Temperature 98.7 F 97.8 F Pulse Rate [Apical ] 75 Pulse Rate [Pulse Oximeter] 75 77 77 Respiratory Rate 18 27 H 27 H Blood Pressure [Ri ght Arm] 125/72 111/76 Pulse Oximetry 93 96 Oxygen Delivery Me thod Room Air Room Air Labs/Imaging Labs Labs: WBC 13, down trending Progress Note: A&P Assessment and plan (1) Acute appendicitis with rupture: Status: Acute Assessment and Plan: Patient is postop day 2 acute appendicitis with evidence of rupture. Vital signs stable and afebrile overnight. WBC is trending down, will continue IV antibiotics while inpatient and plan to transition to oral before discharge for a 10 day course. Is tolerating small bites of regular diet. -regular diet -DC IV fluids -continue with IV Zosyn, will plan to transition to Augmentin tomorrow to complete a 10 day course. -encourage ambulation -SCDs and Lovenox for DVT prophylaxis -IV and p.o. pain meds as needed Anticipate discharge tomorrow morning.
[2023-04-02] MEDS: IBUPROFEN 600 MG TABLET PO ×2 (14:12→23:57)
--- NOTE | 2023-04-02 19:26 | PC.NURSE ---
Nursing Care Hours: [id number] Pt this shift anxious in the morning d/t elevated WBC and queazy abdomen. Labs drawn and discussed with pt which eased pt anxiety. Tolerated regular diet, pain 3-4/10, treated per eMAR. Middle lap site red but no drainage. IV patent, end of shift, removed the wrap and towel around IV at end of shift and IV began bleeding under transparent dressing. Oncoming nurse notified. LS, RR tachy. IS encouraged. Independent in room. Reported a BM this morning.
[2023-04-02] MEDS: ENOXAPARIN 40 MG/0.4 ML INJ SUBCUT (21:00)
[2023-04-03 03:00] VITALS: BP 118/73; PULSE 64; RESP 18; TEMP 36.3; O2SAT 93
--- NOTE | 2023-04-03 05:44 | PC.NURSE ---
Alert and oriented x 4. Pain to abdomen reported at 2/10 throughout the shift, pain is well managed with PRN tylenol and PRN motrin. Lap sites clean dry and intact, lap site closest to midline has some redness around incision, MD aware. Ambulates independently in room. Bowel sounds active x 4 quadrants, denies any nausea or vomiting.
[2023-04-03] MEDS: PIPERACILLIN/TAZOBACTAM 3.375 GM in 0.9 % SODIUM CHLORIDE Mini-bag 100 ML IVPB (05:59)
[2023-04-03 07:30] VITALS: BP 117/65; PULSE 63; RESP 18; TEMP 36.6; O2SAT 97
[2023-04-03 11:00] VITALS: BP 129/81; PULSE 62; RESP 16; TEMP 36.1; O2SAT 98
--- NOTE | 2023-04-03 11:29 | PM.DS1 ---
DS: Providers Provider Date Seen: 04/03/23 Date of admission: 03/31/23 09:16 Primary care physician: Enid Obregon DO Admitting Clinician: Jessica Blankenship MD Attending Physician on discharge: Jessica Blankenship MD DS: Summary Hospital Course Hospital Course: Patient underwent a laparoscopic appendectomy for ruptured appendicitis. Postoperatively for his fever curve and WBC were trended and he was continued on IV antibiotics. His fever curve did improve, he was afebrile greater than 24 hours and his white blood cell count trended towards normal. At the time of discharge he was transition to oral antibiotics, to complete a 10 day course. Patient was ambulating independently, tolerating regular diet, and pain was well controlled. Patient's exam is benign. He does have some slight redness around the middle incision, no concern for infection currently but patient was instructed to call should he notice any increasing redness, increasing pain or drainage from the area. Time Spent with Patient Time attestation: Total time spent providing and/or coordinating discharge services: Exam Narrative: Exam Narrative: General: Alert and oriented, no acute distress Respiratory: Equal breath rise bilaterally, maintained on room air CV: Regular rhythm rate, well perfused Abdomen: Soft, nontender nondistended. Steri-Strips are now off of the incisions. Middle incision with some slight redness around the wound, better compared to yesterday. No current concern for infection. Const: Vital Signs, click to edit/add: Vital Signs - 24 hr 04/02/23 12:00 04/02/23 15:00 04/02/23 16:00 Temperature 97.9 F 97.7 F Pulse Rate [Pulse Oximeter] 68 68 68 Respiratory Rate 22 26 H 16 Blood Pressure [Ri t Arm] 110/74 116/66 Pulse Oximetry 92 95 Oxygen Delivery Me thod Room Air Room Air Oxygen Flow Rate 04/02/23 20:00 04/02/23 23:00 04/03/23 03:00 Temperature 97.9 F 97.8 F 97.3 F L Pulse Rate [Pulse Oximeter] 84 68 64 Respiratory Rate 20 16 18 Blood Pressure [Ri t Arm] 134/67 114/68 118/73 Pulse Oximetry 96 93 93 Oxygen Delivery Me thod Room Air Nasal Cannula Room Air Oxygen Flow Rate 04/03/23 07:30 04/03/23 07:30 Temperature 97.9 F Pulse Rate [Pulse Oximeter] 63 63 Respiratory Rate 18 18 Blood Pressure [Ri ght Arm] 117/65 Pulse Oximetry 97 Oxygen Delivery Me thod Room Air Oxygen Flow Rate 0 Discharge Plan Discharge Disposition: Home, Self-Care Date of Admission: 03/31/23 09:16 Attending Provider on Discharge: Britney Hanks Primary Care Provider: Enid Obregon Condition: Improved Anticipated Discharge Date/Time: 04/02/23 10:44 Discharge Medications: New oxycodone 5 mg tablet 5 mg PO Q6H PRN (Reason: pain) Qty: 10 0RF senna 8.6 mg capsule 8.6 mg PO DAILY PRN (Reason: constipation) Qty: 90 0RF amoxicillin-pot clavulanate 875-125 mg tablet 1 tab PO BID 8 Days Qty: 16 0RF Discharge Orders: Discharge Order (Routine); Ordered 04/03/23 Ordered By: Britney Hanks Patient Education: General Anesthesia (DC), Laparoscopic Appendectomy (DC), Post-Operative Instructions: Appendectomy Additional Instructions: Okay to shower. Do not soak in a bath or swim for 2 weeks after surgery. You were prescribed a narcotic pain medication. In addition you may supplement with Tylenol and/or ibuprofen. Be sure to not exceed greater than 4 g of Tylenol in a 24 hour period. While on narcotic pain medicine please take stool softeners. A prescription of stool softeners has been sent to the pharmacy. Stop if having greater than 2 stools per day. Activity Level: No strenuous activity Activity Detail: Activity as tolerated. Avoid strenuous activity. No lifting greater than 20 lb for 2 weeks. Discharge Diet: Regular Follow Up Appointments: Britney Hanks MD [Staff Physician] - (Two week follow-up) Enid Obregon DO [Primary Care Provider] - Forms: [facility] Info Instructions
--- NOTE | 2023-04-03 14:49 | PC.NURSE ---
Discharge note: Pt alert and oriented, pleasant and cooperative. Vitals stable, on RA. Pt states tolerable, minimal pain to abd, primarily only caused when pt coughs, pt declined need for PRN. Pt able to be ind in room, had shower in AM. Stated 2 BMs this AM. Tolerating regular diet, denying nausea. Amb well without concern. Napped intermit during shift. IV removed in AM d/t leaking. Pt cleared for d/c and will start PO abx, education given. D/C instructions reviewed with pt, questions answered, pt states awareness on new medication, f/u appt, symptoms worsening and denies questions about all other information. Pt states comfortable w/ dc'ing home w/ . Pt given WC ride to car w/ spouse to d/c home.
== END 2023-04-03 14:35 | disposition home or self-care (01) | DRG 340 ==
LOC: ED 02:38 → MEDSURG 02:51
PROVIDERS: Admitting Provider Surgery; Emergency Provider Family Medicine; PCP Family Medicine; Visit Provider Family Medicine
PROC: 0DTJ4ZZ Resection of Appendix, Percutaneous Endoscopic Approach (ICD-10-PCS; CPT 44970; principal; 2023-03-31 06:15)
DX: K35.32 Acute appendicitis with perforation, localized peritonitis, and gangrene, without abscess (principal)
CPT/HCPCS: 00840; 36415; 74177; 80048; 80053; 80076; 81003; 81015; 82150; 83605; 85025; 86140; 87086; 88304; 93005; 94761; 99100; 99140; 99284; 99285; A9270; J0330; J0665; J0690; J1100; J1170; J1650; J2250; J2405; J2543; J2704; J2710; J3010; J7030; J7120; Q9967

== ENCOUNTER 2023-04-15 14:37 | Outpatient (CLI) | payer SELFPAY ==
--- NOTE | 2023-04-15 16:00 | CRLHL7_ITS ---
For Patients: As a result of the Century Cures Act, medical imaging exams and procedure reports are released immediately into your electronic medical record. You may view this report before your referring provider. If you have questions, please contact your health care provider. Indication: POSSIBLE ABSCESS AFTER APPENDECTOMY Technique: Postcontrast CT abdomen and pelvis. 124 cc Isovue 370 intravenous contrast. Please note that all CT scans at this facility use dose modulation, iterative reconstruction, and/or weight-based dosing when appropriate to reduce radiation dose to as low as reasonably achievable. Comparison: 03/31/2023 Findings: Dependent areas of atelectasis/scarring are present within both lung bases. No free intraperitoneal air. No intrahepatic mass. No stigmata of cirrhosis. Gallbladder normal. No calcified gallstones or biliary obstruction. The spleen is normal. Normal pancreas. A hiatal hernia is present measuring 3.0 cm. No pericardial effusion. Normal adrenal glands. Incidental parapelvic cysts left kidney. Normal ureters. Bladder unremarkable. Prostate not enlarged. Status post appendectomy. Improved inflammatory changes within the right lower quadrant mesenteric fat with a few scattered remaining linear/curvilinear densities and subcentimeter lymph nodes. Interval development of a circumscribed collection of fluid and air within the lower pelvis in the midline measuring 3.2 cm. This is located adjacent to the rectum. No fracture. Degenerative changes noted. Impression: Interval development of a lower central pelvic abscess measuring 3.2 cm. Status post appendectomy with some residual inflammatory changes present in the right lower quadrant. No mechanical bowel obstruction. Discussed with Dr. Hanks 8:05 a.m. 04/16/2023. Please note that all CT scans at this facility use dose modulation, iterative reconstruction, and/or weight-based dosing when appropriate to reduce radiation dose to as low as reasonably achievable. Dictated by Pierce Daniels MD @ 04/16/2023 11:58:26 AM (Electronically Signed)
== END 2023-04-15 14:38 | disposition home or self-care (01) ==
PROVIDERS: Visit Provider Surgery
DX: T81.40XA Infection following a procedure, unspecified, initial encounter (principal); K65.1 Peritoneal abscess
CPT/HCPCS: 74177; Q9967

== ENCOUNTER 2023-04-21 15:38 | Outpatient (CLI) | payer SELFPAY ==
--- NOTE | 2023-04-21 16:00 | CRLHL7_ITS ---
For Patients: As a result of the Century Cures Act, medical imaging exams and procedure reports are released immediately into your electronic medical record. You may view this report before your referring provider. If you have questions, please contact your health care provider. INDICATION: Infection following a procedure, EVALUATE INRA AB ABSCESS sic TECHNIQUE: CT abdomen and pelvis acquired with 124 cc Isovue 370 IV contrast. COMPARISON: 04/15/2023, 03/31/2023. FINDINGS: Lower chest: Unremarkable. Liver: Unremarkable. Normal in size and attenuation. No suspicious masses. Gallbladder and bile ducts: Unremarkable. No stones or inflammation. No biliary dilatation. Pancreas: Unremarkable. No mass or inflammation. Spleen: Unremarkable. Normal in size. No masses. Adrenal glands: Unremarkable. No nodules. Kidneys: Unremarkable. No suspicious masses, stones, or hydronephrosis. Left parapelvic cysts. GI tract: Unremarkable. Normal in caliber. No sign of mass or inflammation. Normal appendix. Vasculature: Abdominal aorta is normal in caliber. Mesenteric arteries are patent. Lymph nodes: No lymphadenopathy. Peritoneum/Abdominal Wall: Unremarkable. No sign of mass or infiltration. No free air or significant free fluid. Pelvis: Interval involution of previously demonstrated rim enhancing fluid collection in the vesicorectal recess of the pelvic peritoneum with only a persistent focus of ill-defined enhancement in this region which is otherwise notable for multiple central hyperattenuating elements which were not present on the examination performed 03/31/2023 prior to appendectomy. These may represent dropped surgical clips in the pelvic peritoneal recess. Mesorectal fat stranding persists. Persistent 2 cm focal coalescent soft tissue density in the right iliac fossa mesentery (series 2; image 92), unchanged, consistent with an inflammatory phlegmon, for example. Surrounding fat stranding is associated with this finding. Bones: Unremarkable for age. IMPRESSION: Interval involution of the circumscribed rim enhancing fluid collection in the vesicorectal pelvic peritoneal recess associated with nonspecific hyperattenuating central elements which may represent dropped surgical clips but are otherwise nonspecific. Of note, these findings were not present in this location on the CT examination performed prior to the patient`s appendectomy dated 03/31/2023. Persistent inflammatory changes in the right iliac fossa mesentery and in the mesorectal fat. No other significant interval findings. Please note that all CT scans at this facility use dose modulation, iterative reconstruction, and/or weight-based dosing when appropriate to reduce radiation dose to as low as reasonably achievable. Dictated by Bhupendra Florence MD @ 04/21/2023 6:39:10 PM (Electronically Signed)
== END 2023-04-21 15:39 | disposition home or self-care (01) ==
LOC: CT 15:39
PROVIDERS: Visit Provider Surgery
DX: T81.49XA Infection following a procedure, other surgical site, initial encounter (principal)
CPT/HCPCS: 74177; Q9967

== ENCOUNTER 2023-04-23 10:30 | Outpatient (RCR) | payer SELFPAY ==
--- NOTE | 2023-04-16 08:53 | CRLHL7_ITS ---
For Patients: As a result of the Cures Act, medical imaging exams and procedure reports are released immediately into your electronic medical record. You may view this report before your referring provider. If you have questions, please contact your health care provider. Indication: Ultrasound guidance for PICC line placement. Technique: Ultrasound guidance is performed for PICC line placement. Comparison: None available Findings: Ultrasound is used to localize the right basilic vein. Ultrasound is then used to localize the right brachial vein for successful PICC placement. Impression: Ultrasound used for placement of a PICC line in the brachial vein. Dictated by Harris Villafuerte MD @ 04/17/2023 9:20:38 AM (Electronically Signed)
[2023-04-16] MEDS: 0.9 % SODIUM CHLORIDE 250 ml IV (15:04)
[2023-04-16] MEDS: ERTAPENEM 1 GM in 0.9 % SODIUM CHLORIDE Mini-bag 100 ML IVPB (15:04)
--- NOTE | 2023-04-16 15:49 | PC.NURSE ---
Patient alert and oriented, VSS. Patient had a midline placed in right arm. Antibiotic infusion started at 1500 and ended at 1534. Patient tolerated well.
[2023-04-17] MEDS: ERTAPENEM 1 GM in 0.9 % SODIUM CHLORIDE Mini-bag 100 ML IVPB (15:17)
[2023-04-17 15:20] VITALS: BP 119/72; PULSE 63; RESP 16; TEMP 36.4; O2SAT 96
[2023-04-17] MEDS: SODIUM CHLORIDE 0.9 % (FLUSH) 10 ML SYRINGE IVF (15:22)
[2023-04-17] MEDS: 0.9 % SODIUM CHLORIDE 250 ml IV (15:22)
[2023-04-18 15:00] VITALS: BP 122/80; PULSE 65; RESP 18; TEMP 36.4; O2SAT 96
[2023-04-18] MEDS: ERTAPENEM 1 GM in 0.9 % SODIUM CHLORIDE Mini-bag 100 ML IVPB (15:06)
[2023-04-18] MEDS: SODIUM CHLORIDE 0.9 % (FLUSH) 10 ML SYRINGE IVF (15:07)
[2023-04-19 15:08] VITALS: BP 113/69; PULSE 67; RESP 16; TEMP 36.2; O2SAT 99
[2023-04-19] MEDS: SODIUM CHLORIDE 0.9 % (FLUSH) 10 ML SYRINGE IVF (15:13)
[2023-04-19] MEDS: ERTAPENEM 1 GM in 0.9 % SODIUM CHLORIDE Mini-bag 100 ML IVPB (15:13)
[2023-04-19] MEDS: 0.9 % SODIUM CHLORIDE 250 ml IV (15:14)
--- NOTE | 2023-04-19 16:58 | PC.NURSE ---
pt came in for IV antibiotic. Picc line is patent. it flushed with no problems. IV infused with no problems. pt was very pleasant.
[2023-04-20 14:26] VITALS: BP 113/71; PULSE 70; RESP 16; TEMP 36.5; O2SAT 97
[2023-04-20] MEDS: 0.9 % SODIUM CHLORIDE 250 ml IV (14:41)
[2023-04-20] MEDS: ERTAPENEM 1 GM in 0.9 % SODIUM CHLORIDE Mini-bag 100 ML IVPB (14:41)
[2023-04-21 14:48] VITALS: BP 101/66; PULSE 67; RESP 16; TEMP 36.1; O2SAT 96
[2023-04-21 14:48] LABS: Basophils Absolute Auto 0.04 K/uL (0.00-0.30); Basophils Percent Auto 0.4 % (0.0-3.0); Eosinophils Absolute Auto 0.24 K/uL (0.00-0.50); Eosinophils Percent Auto 2.4 % (0.0-7.0); Hematocrit 42.5 % (37.0-53.0); Hemoglobin* 14.2 gm/dL (13.5-17.5); Immature Granulocytes Abs Auto 0.05 K/uL (0.00-0.30); Immature Granulocytes Pct Auto 0.5 %; Lymphocytes Absolute Auto 3.05 K/uL (0.90-2.90); Lymphocytes Percent Auto 29.9 % (20-44); Mean Corpuscular HGB Conc 33 gm/dL (32-36); Mean Corpuscular Hemoglobin 29 pg (26-34); Mean Corpuscular Volume 87 fL (80-100); Monocytes Percent Auto 8.2 % (0.0-11.0); Neutrophils Absolute Auto 5.97 K/uL (1.7-7.0); Neutrophils Percent Auto 58.6 % (42.0-72.0); Platelet Count* 347 K/uL (140-440); RDW Coefficient of Variation % 12.3 % (11.5-15.5); Red Blood Count 4.88 m/uL (4.30-5.90); White Blood Count* 10.19 K/uL (4.50-11.00)
[2023-04-21 14:51] LABS: Slide Review Reflex No
[2023-04-21] MEDS: ERTAPENEM 1 GM in 0.9 % SODIUM CHLORIDE Mini-bag 100 ML IVPB (15:00)
[2023-04-22 15:00] VITALS: TEMP 36.1
[2023-04-22] MEDS: ERTAPENEM 1 GM in 0.9 % SODIUM CHLORIDE Mini-bag 100 ML IVPB (15:22)
[2023-04-22] MEDS: SODIUM CHLORIDE 0.9 % (FLUSH) 10 ML SYRINGE IVF (15:22)
--- NOTE | 2023-04-23 10:55 | ONC.NURNOTE ---
Pt here for midline picc line removal. Pt tolerated procedure well. PICC line measured 19cm, same as insertion documentation. Pt observed for 30 min after removal.
== END 2023-04-23 11:00 | disposition home or self-care (01) ==
LOC: CCIC 10:30
PROVIDERS: Referring Provider Surgery; Visit Provider Surgery
DX: T81.43XA Infection following a procedure, organ and space surgical site, initial encounter (principal)
CPT/HCPCS: 36410; 36415; 36589; 76937; 85025; 96365; 99211; J1335; J7050

== ENCOUNTER 2023-05-06 13:37 | Emergency (ER) | payer SELFPAY ==
[2023-05-06] VITALS (7 sets, daily range): BP systolic 113–139; BP diastolic 76–87; PULSE 61–79; RESP 16–18; TEMP 36.6; O2SAT 89–98; BMI 34.2
--- NOTE | 2023-05-06 14:06 | CRLHL7_ITS ---
For Patients: As a result of the Century Cures Act, medical imaging exams and procedure reports are released immediately into your electronic medical record. You may view this report before your referring provider. If you have questions, please contact your health care provider. INDICATION: History of postoperative abscess, recurrent abdominal pain. TECHNIQUE: Multiplanar CT examination of the abdomen and pelvis were acquired after the administration of 120 mL Isovue 370 intravenously. COMPARISON: CT abdomen pelvis 04/21/2023. FINDINGS: Lower chest: Linear bandlike opacifications of the lung bases likely due to subsegmental atelectasis and/or scarring. No focal consolidation. Dependent atelectasis. No pleural effusions or pneumothorax. Normal heart size. Small hiatal hernia. Liver: Normal. Gallbladder/Biliary: Normal. No biliary ductal dilitation. Pancreas: Normal. Spleen: Normal. Adrenal Glands: Normal. Kidneys: Normal size and symmetrically enhancing. No obstructive calculi or hydronephrosis. Left parapelvic cysts. Ureters: Unremarkable. Bladder: Unremarkable. Bowel: No obstruction or bowel wall thickening. Surgically absent. No significant colonic diverticulosis. Pelvic organs: Unremarkable. Peritoneum: Slightly increased mesenteric fat stranding and ill-defined soft tissue density in the right iliac fossa mesentery (2:83), measuring 17 x 23 mm on today`s examination, previously 18 x 13 mm (2:92 on the prior examination), consistent with phlegmonous changes without drainable collection identified.. Vessels: No aneurysm. Portal vein remains patent. Mild atherosclerotic disease. Lymph Nodes: No lymphadenopathy. Abdominal Wall/Soft Tissues: Left mid abdominal wall incisional scar. Otherwise, normal. Bones: Unremarkable given patient`s age. IMPRESSION: Slightly increased phlegmonous changes in the right iliac fossa mesenteric. No drainable collections identified to suggest intra-abdominal abscess. Please note that all CT scans at this facility use dose modulation, iterative reconstruction, and/or weight-based dosing when appropriate to reduce radiation dose to as low as reasonably achievable. Dictated by Christiano Hazel MD @ 05/06/2023 3:48:33 PM (Electronically Signed)
[2023-05-06] MEDS: 0.9 % SODIUM CHLORIDE 500 ML 500 ML IV (14:26)
[2023-05-06 14:30] LABS: Basophils Absolute Auto 0.02 K/uL (0.00-0.30); Basophils Percent Auto 0.2 % (0.0-3.0); Hematocrit 44.7 % (37.0-53.0); Hemoglobin* 14.7 gm/dL (13.5-17.5); Immature Granulocytes Abs Auto 0.01 K/uL (0.00-0.30); Immature Granulocytes Pct Auto 0.1 %; Lymphocytes Absolute Auto 1.82 K/uL (0.90-2.90); Lymphocytes Percent Auto 22.7 % (20-44); Mean Corpuscular HGB Conc 33 gm/dL (32-36); Mean Corpuscular Hemoglobin 29 pg (26-34); Mean Corpuscular Volume 88 fL (80-100); Platelet Count* 283 K/uL (140-440); RDW Coefficient of Variation % 13.2 % (11.5-15.5); Red Blood Count 5.11 m/uL (4.30-5.90); White Blood Count* 8.02 K/uL (4.50-11.00)
--- NOTE | 2023-05-06 14:30 | ED.GENADULT ---
HPI - General Adult General Date Seen: 05/06/23 Chief complaint: Abdominal Pain Stated complaint: Abdominal pain-appendix out 30 days ago-infection Time Seen by Provider: 05/06/23 13:51 Source: patient, RN notes reviewed and old records reviewed Mode of arrival: ambulatory Limitations: no limitations History of Present Illness HPI narrative: Patient is a 72-year-old male who underwent appendectomy about a month ago. He developed a postoperative abscess and was treated with ertapenem IV for 7 days and then oral antibiotics for 7 days. It sounds as if after the or dependent he was doing better although he says pain never completely went away. Since completing the oral antibiotics a few days ago he has developed recurrent right abdominal pain although he says the location is little different than it was. He says he has lost 30 lb through all of this, appetite has been minimal. No vomiting or fevers. Not currently taking any antibiotics. Related Data Home Medications Medication Instructions Recorded Confirmed prednisone 05/06/23 Allergies Allergy/AdvReac Type Severity Reaction Status Date / Time No Known Drug Allergies Allergy Verified 04/22/23 14:46 Review of Systems Status of ROS: Reports: 6 or more systems reviewed and unremarkable except as noted in History and below PFSH PFS Medical History No significant past medical history Surgical History Status post colonoscopy ?Z98.890 - Other specified postprocedural states (ICD-10) History of basal cell carcinoma (BCC) excision ?Z98.890 - Other specified postprocedural states (ICD-10) ?Z85.828 - Personal history of other malignant neoplasm of skin (ICD-10) Status post total right knee replacement ?Z96.651 - Presence of right artificial knee joint (ICD-10) No significant past surgical history Family History Father Lung cancer Mother Arthritis Social History Narrative: Lives with . Retired. Full resuscitation in event of cardiopulmonary demise. Designates his , Sarah, as power of business control manager for health should that be required, phone number [phone]. Has never used tobacco products. Quit drinking alcoholic beverages in 1979. What is your current living situation?: I presently have a place to live Problems where you live: no known problems Problems where you live details: n/a In the past 12 months, utilities in danger of being shut off: no In past 12 months, lack of transportation kept you from medical appts, meetings, work, or getting things needed for daily living: no In the past 12 mos, have been you worried that your food would run out before you had money to buy more?: never true In the past 12 mos, the food you bought just didn't last and you didn't have money to buy more?: never true Highest level of school completed/degree received: some college, no degree Smoking Status: Never smoker Do you use any of these nicotine containing products: None Second hand tobacco smoke exposure: No How often do you have a drink containing alcohol: never How often do you have six or more drinks on one occasion: Never AUDIT-C Alcohol total score: 0 Non-prescribed substance use: denies use Caffeine: Yes How often does anyone, including family, friends and others, physically hurt you: never How often does anyone, including family, friends and others, insult or talk down to you: never How often does anyone, including family, friends and others, threaten you with harm: never How often does anyone, including family, friends and others, scream or curse at you: never service: Yes Exam Narrative: Exam Narrative: Vital signs as noted above. In general, an alert, well-appearing patient. Head: Normocephalic, atraumatic. Eyes: Pupils are equal reactive. Extraocular movements are full. Conjunctivae are normal. ENT: Mucous membranes are moist. Throat is normal. Neck: Supple without lymphadenopathy. Heart: Regular rate and rhythm. No murmur or rub. Lungs: Clear bilaterally. No increased work of breathing, crackles or wheezes. Abdomen: Soft and nondistended. He has some migratory right-sided abdominal tenderness without rebound guarding or rigidity. Extremities: Well perfused. No edema. No calf tenderness. Pulses intact. Neurologic: Patient is alert and oriented to person and place. Speech is fluent. Face is symmetric. Moves all extremities equally. Affect: Normal. Skin: Warm and dry. Well perfused. Const: Vital Signs, click to edit/add: Vital Signs - 24 hr 05/06/23 13:45 05/06/23 14:57 05/06/23 14:58 Temperature 97.9 F Pulse Rate 72 66 Pulse Rate [Right Pulse Oximeter] 79 Respiratory Rate 18 16 Blood Pressure 113/76 Blood Pressure [Ri ght Upper Arm] 139/87 Pulse Oximetry 98 89 93 Oxygen Delivery Me thod Room Air 05/06/23 14:59 05/06/23 15:00 05/06/23 15:02 Temperature Pulse Rate 63 63 64 Pulse Rate [Right Pulse Oximeter] Respiratory Rate Blood Pressure 123/81 Blood Pressure [Ri ght Upper Arm] Pulse Oximetry 96 95 92 Oxygen Delivery Me thod 05/06/23 15:15 Temperature Pulse Rate 61 Pulse Rate [Right Pulse Oximeter] Respiratory Rate Blood Pressure Blood Pressure [Ri ght Upper Arm] Pulse Oximetry 95 Oxygen Delivery Me thod Course Course ED Course: Last CT scan was April 21, read as follows:IMPRESSION: Interval involution of the circumscribed rim enhancing fluid collection in the vesicorectal pelvic peritoneal recess associated with nonspecific hyperattenuating central elements which may represent dropped surgical clips but are otherwise nonspecific. Of note, these findings were not present in this location on the CT examination performed prior to the patient`s appendectomy dated 03/31/2023. Persistent inflammatory changes in the right iliac fossa mesentery and in the mesorectal fat. No other significant interval findings. His white blood cell count had improved from 15 to 8. Given recurrence of pain I do think he needs repeat imaging work. He is in agreement. Declines need for anything for pain right now. Labs today are reassuring. Normal white count and CRP. Very minimal left shift with 73% neutrophils. CT scan today read by Radiology showing mildly increased phlegmonous changes in the right lower quadrant. I did discuss his case with Dr. Huber on-call for surgery. She has reviewed the CT scan as well as the patient's labs. Overall, presentation is not significantly concerning to her, but would recommend putting him back on some antibiotics and having him see Dr. Hanks next week. Will prescribe Augmentin 3 Instymeds. Return for worsening pain, fevers, vomiting etcetera, otherwise will have him schedule with surgery clinic next week. Vital Signs Vital signs: Initial Vital Signs Temperature 97.9 F 05/06/23 13:45 Temperature Source Temporal Artery Scan 05/06/23 13:45 Pulse Rate 79 05/06/23 13:45 Respiratory Rate 18 05/06/23 13:45 Blood Pressure 139/87 05/06/23 13:45 Blood Pressure Mean 104 05/06/23 13:45 Blood Pressure Position Sitting 05/06/23 13:45 Pulse Oximetry 98 05/06/23 13:45 Oxygen Delivery Method Room Air 05/06/23 13:45 Vital Signs Temperature 97.9 F 05/06/23 13:45 Pulse Rate 79 05/06/23 13:45 Respiratory Rate 18 05/06/23 13:45 Blood Pressure 139/87 05/06/23 13:45 Pulse Oximetry 98 05/06/23 13:45 Oxygen Delivery Method Room Air 05/06/23 13:45 Temperature 97.9 F 05/06/23 13:45 Pulse Rate 61 05/06/23 15:15 Respiratory Rate 16 05/06/23 14:58 Blood Pressure 123/81 05/06/23 15:02 Pulse Oximetry 95 05/06/23 15:15 Oxygen Delivery Method Room Air 05/06/23 13:45 Medical Decision Making Lab Data Labs: Lab Results 05/06/23 05/06/23 Range/Units 14:12 14:33 WBC 8.02 (4.50-11.00) K/uL RBC 5.11 (4.30-5.90) m/uL Hgb 14.7 (13.5-17.5) gm/dL Hct 44.7 (37.0-53.0) % MCV 88 (80-100) fL MCH 29 (26-34) pg MCHC 33 (32-36) gm/dL RDW Coeff of Johann 13.2 (11.5-15.5) % Plt Count 283 (140-440) K/uL Neut % (Auto) 73.0 H (42.0-72.0) % Lymph % (Auto) 22.7 (20-44) % [place] % (Auto) 4.0 (0.0-11.0) % Eos % (Auto) 0.0 (0.0-7.0) % Baso % (Auto) 0.2 (0.0-3.0) % Neut # (Auto) 5.90 (1.7-7.0) K/uL Lymph # (Auto) 1.82 (0.90-2.90) K/uL [place] # (Auto) 0.30 (0.00-0.90) K/UL Eos # (Auto) 0.00 (0.00-0.50) K/uL Baso # (Auto) 0.02 (0.00-0.30) K/uL Abs Immat Gran (auto) 0.01 (0.00-0.30) K/uL Imm/Tot Granulo (auto) 0.1 % Sodium 139 (135-149) mmol/L Potassium 4.3 (3.6-5.1) mmol/L Chloride 107 (96-114) mmol/L Carbon Dioxide 24 (20-32) mmol/L Anion Gap 8 (7-15) mEq/L BUN 22 (7-30) mg/dL Creatinine 0.9 (0.5-1.5) mg/dL Estimated Creat Clear 72.16 Estimated GFR 91 ml/min Glucose 116 H (60-115) mg/dL Calcium 9.0 (8.4-10.6) mg/dL C-Reactive Protein 0.8 (0.5-1.0) mg/dL POC Creatinine 1.0 (0.6-1.3) mg/dl Discharge Plan Discharge Clinical Impression: Post-operative infection Patient Disposition: Home, Self-Care Condition: Stable Instructions: Surgical Site Infections (ED) Additional Instructions: Antibiotic as prescribed. Please call surgery clinic and schedule an appointment to follow up with Dr. Hanks next week. Return at any time for severe pain, fevers, etc.. Prescriptions: No Action prednisone Follow Up/Referrals: Oren Bates MD [Primary Care Provider] - Stand Alone Forms: [facility] Info Instructions
[2023-05-06 14:36] LABS: Slide Review Reflex No
[2023-05-06 15:02] LABS: Chloride* 107 mmol/L (96-114); Potassium* 4.3 mmol/L (3.6-5.1); Sodium* 139 mmol/L (135-149)
[2023-05-06 15:05] LABS: Creatinine* 0.9 mg/dL (0.5-1.5); Est. Creatinine Clearance* 72.16; Estimated Glomerular Filt Rate 91 ml/min
[2023-05-06 15:06] LABS: Anion Gap 8 mEq/L (7-15); Blood Urea Nitrogen* 22 mg/dL (7-30); Carbon Dioxide* 24 mmol/L (20-32); Glucose* 116 mg/dL (60-115)
[2023-05-06 15:09] LABS: C Reactive Protein* 0.8 mg/dL (0.5-1.0)
== END 2023-05-06 16:20 | disposition home or self-care (01) ==
PROVIDERS: Emergency Provider Emergency Medicine; PCP Family Medicine
DX: T81.49XA Infection following a procedure, other surgical site, initial encounter (principal); L08.9 Local infection of the skin and subcutaneous tissue, unspecified
CPT/HCPCS: 36415; 74177; 80048; 82565; 85025; 86140; 96360; 96361; 99284; 99285; J7120; Q9967

== ENCOUNTER 2023-05-17 05:10 | Emergency (ER) | payer SELFPAY ==
[2023-05-17 05:20] VITALS: BP 155/103; PULSE 67; RESP 28; TEMP 36.2; O2SAT 100; BMI 34.2
--- NOTE | 2023-05-17 05:22 | ED_ITS ---
HPI - General Adult General Time Seen by Provider: 05:22 <Jonathon Guzman MD - Last Filed: 05/24/23 16:57> Date Seen: 05/17/23 <Jonathon Guzman MD - Last Filed: 05/24/23 16:57> Chief complaint: Back Injury/Pain <Jonathon Guzman MD - Last Filed: 05/24/23 16:57> Stated complaint: weakness-dizzy <Jonathon Guzman MD - Last Filed: 05/24/23 16:57> Time Seen by Provider: 05/17/23 05:20 <Jonathon Guzman MD - Last Filed: 05/24/23 16:57> Source: patient, RN notes reviewed and old records reviewed <Jonathon Guzman MD - Last Filed: 05/24/23 16:57> Mode of arrival: ambulatory <Jonathon Guzman MD - Last Filed: 05/24/23 16:57> Limitations: no limitations <Jonathon Guzman MD - Last Filed: 05/24/23 16:57> History of Present Illness HPI narrative: 72-year-old male with complex recent medical history including perforated appendicitis with subsequent development of a postoperative abscess, was on ertapenem and then oral antibiotics, who presents today with back pain. Patient had an injection at the left L3-4 performed last week and has had increased pain since that time. Pain is in the low back and radiates down the left leg. This is similar to the pain he was having prior to the injection but worse. Also notes some back pain. Noticed some generalized fatigue, no bowel or bladder incontinence, denies fevers but has had some chills and lightheadedness. <Jonathon Guzman MD - Last Filed: 05/24/23 16:57> Related Data Home medications: Home Medications Medication Instructions Recorded Confirmed prednisone 05/06/23 Previous Rx's Medication Instructions Recorded amoxicillin 875 mg-potassium 1 tab PO BID #14 tabs 05/06/23 clavulanate 125 mg tablet oxycodone 5 mg tablet 5 mg PO Q6H PRN pain #12 tabs 05/17/23 <Jonathon Guzman MD - Last Filed: 05/24/23 16:57> Allergies/adverse reactions: Allergies Allergy/AdvReac Type Severity Reaction Status Date / Time No Known Drug Allergies Allergy Verified 04/22/23 14:46 <Jonathon Guzman MD - Last Filed: 05/24/23 16:57> Review of Systems Status of ROS: Reports: 10 or more systems reviewed and unremarkable except as noted in History and below <Jonathon Guzman MD - Last Filed: 05/24/23 16:57> [facility] Medical History: Medical History (Updated 05/21/23 @ 00:01 by Gloria Diaz) 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 (ICD-10) Lumbar radiculopathy ?M54.16 - Radiculopathy, lumbar region (ICD-10) <Jonathon Guzman MD - Last Filed: 05/24/23 16:57> Surgical History: Surgical History (Updated 05/12/23 @ 13:32 by Tati Ames) History of bone graft ?Z98.890 - Other specified postprocedural states (ICD-10) History of thumb surgery ?Z98.890 - Other specified postprocedural states (ICD-10) History of cataract extraction with lens replacement (12/2022) History of appendectomy ?Z90.49 - Acquired absence of other specified parts of digestive tract (ICD-1 0) Status post colonoscopy ?Z98.890 - Other specified postprocedural states (ICD-10) History of basal cell carcinoma (BCC) excision ?Z98.890 - Other specified postprocedural states (ICD-10) ?Z85.828 - Personal history of other malignant neoplasm of skin (ICD-10) Status post total right knee replacement ?Z96.651 - Presence of right artificial knee joint (ICD-10) <Jonathon Guzman MD - Last Filed: 05/24/23 16:57> Family History: Family History (Updated 05/12/23 @ 13:37 by Tati Ames) Father Lung cancer Mother Arthritis Myocardial infarction, Onset Age: 90 Paternal Grandfather PAD (peripheral artery disease) Brother Sarcoma Other Family history of colon cancer <Jonathon Guzman MD - Last Filed: 05/24/23 16:57> Social History: Social History Narrative: Lives with . Retired. Full resuscitation in event of cardiopulmonary demise. Designates his , Sarah, as power of assistant attorney general for health should that be required, phone number [phone]. Has never used tobacco products. Quit drinking alcoholic beverages in 1979. What is your current living situation?: I presently have a place to live Problems where you live: no known problems Problems where you live details: n/a In the past 12 months, utilities in danger of being shut off: no In past 12 months, lack of transportation kept you from medical appts, meetings, work, or getting things needed for daily living: no In the past 12 mos, have been you worried that your food would run out before you had money to buy more?: never true In the past 12 mos, the food you bought just didn't last and you didn't have money to buy more?: never true Highest level of school completed/degree received: some college, no degree Smoking Status: Never smoker Do you use any of these nicotine containing products: None Second hand tobacco smoke exposure: No How often do you have a drink containing alcohol: never How often do you have six or more drinks on one occasion: Never AUDIT-C Alcohol total score: 0 Non-prescribed substance use: denies use Caffeine: Yes How often does anyone, including family, friends and others, physically hurt you : never How often does anyone, including family, friends and others, insult or talk down to you: never How often does anyone, including family, friends and others, threaten you with harm: never How often does anyone, including family, friends and others, scream or curse at you: never service: Yes <Jonathon Guzman MD - Last Filed: 05/24/23 16:57> Exam Narrative: Exam Narrative: General: Well-developed and well-nourished, appears uncomfortable Head: Atraumatic and normocephalic Eyes: Pupils are equal reactive, extraocular motions intact, conjunctiva clear ENT: External nose and ears are normal, posterior pharynx without erythema or exudate Neck: No midline cervical tenderness, full spontaneous range of motion the neck, trachea midline, no adenopathy Heart: Regular rate and rhythm no murmurs or thrills Lungs: Clear to auscultation bilaterally without wheezes or crackles Abdomen: Soft, nontender, nondistended with active bowel sounds Musculoskeletal: Low lumbar midline and left paraspinous tenderness, pain radiates down the left leg 1 pressing just lateral to the lumbar spine Neurologic: Awake, alert, and oriented x3, strength and sensation of the left leg intact Psych: Mood and affect are appropriate Skin: No rashes <Jonathon Guzman MD - Last Filed: 05/24/23 16:57> Const: Vital Signs, click to edit/add: Vital Signs - 24 hr 05/17/23 05:20 05/17/23 08:00 Temperature 97.2 F L Pulse Rate 77 Pulse Rate [Right Pulse Oximeter] 67 Respiratory Rate 28 H 14 Blood Pressure 155/98 H Blood Pressure [Le ft Upper Arm] 155/103 H Pulse Oximetry 100 97 Oxygen Delivery Me thod Room Air <Jonathon Guzman MD - Last Filed: 05/24/23 16:57> Vital Signs, click to edit/add: Vital Signs - 24 hr 05/17/23 05:20 05/17/23 08:00 Temperature 97.2 F L Pulse Rate 77 Pulse Rate [Right Pulse Oximeter] 67 Respiratory Rate 28 H 14 Blood Pressure 155/98 H Blood Pressure [Le ft Upper Arm] 155/103 H Pulse Oximetry 100 97 Oxygen Delivery Me thod Room Air <Sam Kc DO - Last Filed: 05/17/23 11:48> Course Course ED Course: Patient seen and examined, prior records reviewed. We did review prior admission note from March 31 when patient had his appendectomy. Also reviewed surgery follow-up note from April 15 review he was still having postoperative pain and CT scan demonstrated postoperative abscess that was treated with ertapenem, and reviewed surgery follow-up note from April 22 when was transition from ertapenem to ciprofloxacin and Flagyl which patient has completed. Patient presents today with low back pain radiating in the left leg, recent epidural injection which increased pain. No focal neurologic deficits of the lower extremities, tenderness of the low back and left lumbar paraspinous musculature. Symptoms are consistent with lumbar radiculopathy, concern with recent injection and recent infection for epidural or postprocedure deep infection. Labs ordered along with MRI of the lumbar spine, Solu-Medrol. <Jonathon Guzman MD - Last Filed: 05/24/23 16:57> Reevaluation(s) Time of Reevaluation #1: 07:26 <Jonathon Guzman MD - Last Filed: 05/24/23 16:57> Reevaluation #1: Patient is more comfortable after Toradol, Ativan. Labs independently interpreted by me demonstrate leukocytosis, mild elevation in CRP, reassuring basic panel. MRI is pending and patient will be signed out to oncoming provider. <Jonathon Guzman MD - Last Filed: 05/24/23 16:57> Vital Signs Vital signs: Initial Vital Signs Temperature 97.2 F L 05/17/23 05:20 Temperature Source Temporal Artery Scan 05/17/23 05:20 Pulse Rate 67 05/17/23 05:20 Pulse Rhythm Regular 05/17/23 05:20 Respiratory Rate 28 H 05/17/23 05:20 Blood Pressure 155/103 H 05/17/23 05:20 Blood Pressure Mean 120 H 05/17/23 05:20 Blood Pressure Position Semi-Fowlers 05/17/23 05:20 Pulse Oximetry 100 05/17/23 05:20 Oxygen Delivery Method Room Air 05/17/23 05:20 Vital Signs Temperature 97.2 F L 05/17/23 05:20 Pulse Rate 67 05/17/23 05:20 Respiratory Rate 28 H 05/17/23 05:20 Blood Pressure 155/103 H 05/17/23 05:20 Pulse Oximetry 100 05/17/23 05:20 Oxygen Delivery Method Room Air 05/17/23 05:20 Temperature 97.2 F L 05/17/23 12:19 Pulse Rate 74 05/17/23 12:19 Respiratory Rate 14 05/17/23 12:19 Blood Pressure 138/74 05/17/23 12:19 Pulse Oximetry 97 05/17/23 08:00 Oxygen Delivery Method Room Air 05/17/23 05:20 <Jonathon Guzman MD - Last Filed: 05/24/23 16:57> Initial Vital Signs Temperature 97.2 F L 05/17/23 05:20 Temperature Source Temporal Artery Scan 05/17/23 05:20 Pulse Rate 67 05/17/23 05:20 Pulse Rhythm Regular 05/17/23 05:20 Respiratory Rate 28 H 05/17/23 05:20 Blood Pressure 155/103 H 05/17/23 05:20 Blood Pressure Mean 120 H 05/17/23 05:20 Blood Pressure Position Semi-Fowlers 05/17/23 05:20 Pulse Oximetry 100 05/17/23 05:20 Oxygen Delivery Method Room Air 05/17/23 05:20 Vital Signs Temperature 97.2 F L 05/17/23 05:20 Pulse Rate 67 05/17/23 05:20 Respiratory Rate 28 H 05/17/23 05:20 Blood Pressure 155/103 H 05/17/23 05:20 Pulse Oximetry 100 05/17/23 05:20 Oxygen Delivery Method Room Air 05/17/23 05:20 Temperature 97.2 F L 05/17/23 12:19 Pulse Rate 74 05/17/23 12:19 Respiratory Rate 14 05/17/23 12:19 Blood Pressure 138/74 05/17/23 12:19 Pulse Oximetry 97 05/17/23 08:00 Oxygen Delivery Method Room Air 05/17/23 05:20 <Sam Kc DO - Last Filed: 05/17/23 11:48> Medical Decision Making MDM Narrative Medical decision making narrative: Patient was signed out to me by Dr. Guzman pending MRI results. The returned showing multiple bulge to his but no signs of abscess. Patient states pain is much improved with pain medicine as previously given to him. I spoke to Dr. Guzman about the elevated white blood cell count in the agreement is likely secondary to the recent steroid injection. No other signs of infection at this time. Patient is otherwise doing well. He was discharged home with pain medication. He passed follow-up with the spine surgeon. He is agreeable to this plan. <Sam Kc DO - Last Filed: 05/17/23 11:48> Medical Records Medical records reviewed: Yes I reviewed the patient's medical records <Jonathon Guzman MD - Last Filed: 05/24/23 16:57> Lab Data Lab results reviewed: Yes I reviewed the patient's lab results <Jonathon Guzman MD - Last Filed: 05/24/23 16:57> Labs: Lab Results 05/17/23 Range/Units 05:54 WBC 14.11 H (4.50-11.00) K/uL RBC 5.78 (4.30-5.90) m/uL Hgb 16.7 (13.5-17.5) gm/dL Hct 49.7 (37.0-53.0) % MCV 86 (80-100) fL MCH 29 (26-34) pg MCHC 34 (32-36) gm/dL RDW Coeff of Johann 13.5 (11.5-15.5) % Plt Count 223 (140-440) K/uL Neut % (Auto) 59.6 (42.0-72.0) % Lymph % (Auto) 29.8 (20-44) % Isabela % (Auto) 7.3 (0.0-11.0) % Eos % (Auto) 2.2 (0.0-7.0) % Baso % (Auto) 0.2 (0.0-3.0) % Neut # (Auto) 8.40 H (1.7-7.0) K/uL Lymph # (Auto) 4.20 H (0.90-2.90) K/uL Isabela # (Auto) 1.00 H (0.00-0.90) K/UL Eos # (Auto) 0.30 (0.00-0.50) K/uL Baso # (Auto) 0.00 (0.00-0.30) K/uL Abs Immat Gran (auto) 0.10 (0.00-0.30) K/uL Imm/Tot Granulo (auto) 0.9 % Sodium 136 (135-149) mmol/L Potassium 4.0 (3.6-5.1) mmol/L Chloride 103 (96-114) mmol/L Carbon Dioxide 21 (20-32) mmol/L Anion Gap 12 (7-15) mEq/L BUN 16 (7-30) mg/dL Creatinine 0.9 (0.5-1.5) mg/dL Estimated Creat Clear 72.16 Estimated GFR 91 ml/min Glucose 113 (60-115) mg/dL Calcium 9.7 (8.4-10.6) mg/dL C-Reactive Protein 1.2 H (0.5-1.0) mg/dL <Jonathon Guzman MD - Last Filed: 05/24/23 16:57> Lab Results 05/17/23 Range/Units 05:54 WBC 14.11 H (4.50-11.00) K/uL RBC 5.78 (4.30-5.90) m/uL Hgb 16.7 (13.5-17.5) gm/dL Hct 49.7 (37.0-53.0) % MCV 86 (80-100) fL MCH 29 (26-34) pg MCHC 34 (32-36) gm/dL RDW Coeff of Johann 13.5 (11.5-15.5) % Plt Count 223 (140-440) K/uL Neut % (Auto) 59.6 (42.0-72.0) % Lymph % (Auto) 29.8 (20-44) % Isabela % (Auto) 7.3 (0.0-11.0) % Eos % (Auto) 2.2 (0.0-7.0) % Baso % (Auto) 0.2 (0.0-3.0) % Neut # (Auto) 8.40 H (1.7-7.0) K/uL Lymph # (Auto) 4.20 H (0.90-2.90) K/uL Isabela # (Auto) 1.00 H (0.00-0.90) K/UL Eos # (Auto) 0.30 (0.00-0.50) K/uL Baso # (Auto) 0.00 (0.00-0.30) K/uL Abs Immat Gran (auto) 0.10 (0.00-0.30) K/uL Imm/Tot Granulo (auto) 0.9 % Sodium 136 (135-149) mmol/L Potassium 4.0 (3.6-5.1) mmol/L Chloride 103 (96-114) mmol/L Carbon Dioxide 21 (20-32) mmol/L Anion Gap 12 (7-15) mEq/L BUN 16 (7-30) mg/dL Creatinine 0.9 (0.5-1.5) mg/dL Estimated Creat Clear 72.16 Estimated GFR 91 ml/min Glucose 113 (60-115) mg/dL Calcium 9.7 (8.4-10.6) mg/dL C-Reactive Protein 1.2 H (0.5-1.0) mg/dL <Sam Kc, DO - Last Filed: 05/17/23 11:48> Imaging Data MRI lumbar spine: Radiologist's impression: Indication: Low back pain, left radicular pain status post recent injection Technique: Multiplanar, multisequence MR images of the lumbar spine were obtained without the administration of IV contrast. 15 cc Dotarem intravenous gadolinium Comparison: CT abdomen and pelvis May 06, 2023 Findings: The lumbar vertebral body heights are grossly maintained. The normal lordosis is preserved without significant spondylolisthesis. There is mild multilevel degenerative disc desiccation and small disc protrusion seen at the L2-L3 from L3-L4 and L4-L5 levels. There is demonstration of likely atypical hemangioma within the T12 vertebral body. The conus medullaris terminates at the T12-L1 level and is normal in signal and contour. Cystic changes of the kidneys are appreciated without evidence of definite obstructive change. The paraspinous soft tissues are within normal limits. There is no evidence of abnormal contrast enhancement. L1-L2: There is a diffuse disc bulge. There is no significant spinal canal stenosis or neural foraminal narrowing. L2-L3: There is a diffuse disc bulge with small subarticular protrusions. There is no significant spinal canal narrowing. There is mild left and right neural foraminal narrowing. L3-L4: There is a diffuse disc bulge with mild facet arthrosis. There are small subarticular protrusions. There is moderate left greater than right neural foraminal narrowing. L4-L5: There is a diffuse disc bulge with a left subarticular protrusion. There is mild facet arthrosis. There is demonstration of a right-sided posteriorly directed facet cyst. There is moderate left and mild right neural foraminal narrowing. L5-S1: There is no significant spinal canal stenosis or neural foraminal narrowing. Impression: Multilevel degenerative changes of the lumbar spine as described above without evidence of abnormal enhancement or fluid collection. Dictated by Zoran Bonds MD @ 05/17/2023 11:32:44 AM <Sam Kc DO - Last Filed: 05/17/23 11:48> Discharge Plan Discharge Clinical Impression: Lumbar radiculopathy <Jonathon Guzman MD - Last Filed: 05/24/23 16:57> Patient Disposition: Home, Self-Care <Jonathon Guzman MD - Last Filed: 05/24/23 16:57> Condition: Stable <Jonathon Guzman MD - Last Filed: 05/24/23 16:57> Instructions: Lower Back Exercises (ED) <Jonathon Guzman MD - Last Filed: 05/24/23 16:57> Additional Instructions: Your MRI showed multiple herniated discs but no other concerning abnormalities. Follow-up with your spines specialist. Return for new or worsening symptoms. <Jonathon Guzman MD - Last Filed: 05/24/23 16:57> Prescriptions: New oxycodone 5 mg tablet 5 mg PO Q6H PRN (Reason: pain) Qty: 12 0RF No Action prednisone amoxicillin-pot clavulanate 875-125 mg tablet 1 tab PO BID Qty: 14 0RF <Jonathon Guzman MD - Last Filed: 05/24/23 16:57> Follow Up/Referrals: Oren Bates MD [Primary Care Provider] - <Jonathon Guzman MD - Last Filed: 05/24/23 16:57> Stand Alone Forms: MyHealth Info Instructions <Jonathon Guzman MD - Last Filed: 05/24/23 16:57>
--- NOTE | 2023-05-17 05:39 | CRLHL7_ITS ---
For Patients: As a result of the Century Cures Act, medical imaging exams and procedure reports are released immediately into your electronic medical record. You may view this report before your referring provider. If you have questions, please contact your health care provider. Indication: Low back pain, left radicular pain status post recent injection Technique: Multiplanar, multisequence MR images of the lumbar spine were obtained without the administration of IV contrast. 15 cc Dotarem intravenous gadolinium Comparison: CT abdomen and pelvis May 06, 2023 Findings: The lumbar vertebral body heights are grossly maintained. The normal lordosis is preserved without significant spondylolisthesis. There is mild multilevel degenerative disc desiccation and small disc protrusion seen at the L2-L3 from L3-L4 and L4-L5 levels. There is demonstration of likely atypical hemangioma within the T12 vertebral body. The conus medullaris terminates at the T12-L1 level and is normal in signal and contour. Cystic changes of the kidneys are appreciated without evidence of definite obstructive change. The paraspinous soft tissues are within normal limits. There is no evidence of abnormal contrast enhancement. L1-L2: There is a diffuse disc bulge. There is no significant spinal canal stenosis or neural foraminal narrowing. L2-L3: There is a diffuse disc bulge with small subarticular protrusions. There is no significant spinal canal narrowing. There is mild left and right neural foraminal narrowing. L3-L4: There is a diffuse disc bulge with mild facet arthrosis. There are small subarticular protrusions. There is moderate left greater than right neural foraminal narrowing. L4-L5: There is a diffuse disc bulge with a left subarticular protrusion. There is mild facet arthrosis. There is demonstration of a right-sided posteriorly directed facet cyst. There is moderate left and mild right neural foraminal narrowing. L5-S1: There is no significant spinal canal stenosis or neural foraminal narrowing. Impression: Multilevel degenerative changes of the lumbar spine as described above without evidence of abnormal enhancement or fluid collection. Dictated by Zoran Bonds MD @ 05/17/2023 11:32:44 AM (Electronically Signed)
[2023-05-17] MEDS: METHYLPREDNISOLONE SOD SUCC 62.5 MG/ML (125) 125 MG IVP (06:00)
[2023-05-17] MEDS: LORazepam 2 MG/ML inj 0.5 MG IVP (06:00)
[2023-05-17] MEDS: KETOROLAC 15 MG/ML inj IVP (06:05)
[2023-05-17 06:10] LABS: Basophils Percent Auto 0.2 % (0.0-3.0); Eosinophils Percent Auto 2.2 % (0.0-7.0); Hematocrit 49.7 % (37.0-53.0); Hemoglobin* 16.7 gm/dL (13.5-17.5); Immature Granulocytes Pct Auto 0.9 %; Lymphocytes Percent Auto 29.8 % (20-44); Mean Corpuscular HGB Conc 34 gm/dL (32-36); Mean Corpuscular Hemoglobin 29 pg (26-34); Mean Corpuscular Volume 86 fL (80-100); Monocytes Percent Auto 7.3 % (0.0-11.0); Neutrophils Percent Auto 59.6 % (42.0-72.0); Platelet Count* 223 K/uL (140-440); RDW Coefficient of Variation % 13.5 % (11.5-15.5); Red Blood Count 5.78 m/uL (4.30-5.90); White Blood Count* 14.11 K/uL (4.50-11.00)
[2023-05-17] MEDS: 0.9 % SODIUM CHLORIDE 1000 ml 1,000 ML IV (06:13)
[2023-05-17 06:15] LABS: Slide Review Reflex No
[2023-05-17 06:21] LABS: Chloride* 103 mmol/L (96-114); Sodium* 136 mmol/L (135-149)
[2023-05-17 06:24] LABS: Creatinine* 0.9 mg/dL (0.5-1.5); Est. Creatinine Clearance* 72.16; Estimated Glomerular Filt Rate 91 ml/min
[2023-05-17 06:25] LABS: Anion Gap 12 mEq/L (7-15); Blood Urea Nitrogen* 16 mg/dL (7-30); Calcium* 9.7 mg/dL (8.4-10.6); Carbon Dioxide* 21 mmol/L (20-32); Glucose* 113 mg/dL (60-115)
[2023-05-17 06:28] LABS: C Reactive Protein* 1.2 mg/dL (0.5-1.0)
[2023-05-17 08:00] VITALS: BP 155/98; PULSE 77; RESP 14; O2SAT 97
[2023-05-17 12:19] VITALS: BP 138/74; PULSE 74; RESP 14; TEMP 36.2
== END 2023-05-17 12:15 | disposition home or self-care (01) ==
PROVIDERS: Family Medicine; Emergency Provider Student in an Organized Health Care Education/Training Program; PCP Family Medicine
DX: J18.9 Pneumonia, unspecified organism (principal)
CPT/HCPCS: 36415; 72158; 80048; 85025; 86140; 87040; 96361; 96374; 96375; 99284; 99285; A9575; J1885; J2060; J2930; J7030

== ENCOUNTER 2023-06-15 13:48 | Outpatient (CLI) | payer OTHER, SELFPAY ==
--- NOTE | 2023-06-15 14:00 | CRLHL7_ITS ---
For Patients: As a result of the Century Cures Act, medical imaging exams and procedure reports are released immediately into your electronic medical record. You may view this report before your referring provider. If you have questions, please contact your health care provider. INDICATION: PAIN TECHNIQUE: 4-view lumbar spine, including flexion/extension. COMPARISON: MRI 05/17/2023 FINDINGS: Slight degenerative retrolisthesis of L3 on L4 and L2 on L3. No instability with flexion or extension. No fracture. No pars defects. Mild anterior spurring L3-4 and L2-3. IMPRESSION: Mild degenerative disc disease L2-3 and L3-4 with slight degenerative retrolisthesis at these levels. No instability. Dictated by Pierce Daniels MD @ 06/16/2023 9:06:48 AM (Electronically Signed)
== END 2023-06-15 13:49 | disposition home or self-care (01) ==
PROVIDERS: PCP Internal Medicine; Visit Provider Physician Assistant
DX: M54.50 Low back pain, unspecified (principal); M51.36 Other intervertebral disc degeneration, lumbar region
CPT/HCPCS: 72110; 80048

== ENCOUNTER 2025-01-01 12:22 | Outpatient (CLI) | payer OTHER, SELFPAY | END 2025-01-01 12:23 | disposition home or self-care (01) | LOC: NFLDUCREF 12:23 | PROVIDERS: PCP Internal Medicine; Visit Provider Registered Nurse | DX: D72.829 Elevated white blood cell count, unspecified (principal); N39.0 Urinary tract infection, site not specified; R31.9 Hematuria, unspecified; B96.20 Unspecified Escherichia coli [E. coli] as the cause of diseases classified elsewhere | CPT/HCPCS: 80048; 87086 ==

== ENCOUNTER 2025-01-23 06:07 | Day surgery (SDC) | payer OTHER, SELFPAY ==
[2025-01-23] VITALS (12 sets, daily range): BP systolic 91–126; BP diastolic 57–88; PULSE 49–59; RESP 12–18; TEMP 36.3–36.9; O2SAT 93–97; BMI 36.2
[2025-01-23] MEDS: LACTATED RINGERS 1000 ML 1,000 ML 100 ML IV (06:15)
[2025-01-23] MEDS: SODIUM CHLORIDE 0.9 % (FLUSH) 10 ML SYRINGE IVF (06:54)
[2025-01-23] MEDS: CEFAZOLIN 1 GM inj IVP (07:40)
[2025-01-23] MEDS: BUPIVACAINE 0.25% 30 ML INJECTION (08:10)
--- NOTE | 2025-01-23 08:35 | P.ANES_ITS ---
Anesthesia Charges Start Date/Time Anesthesia Start Date: 01/23/25 Anesthesia Start Time: 07:30 Stop Date/Time Anesthesia Stop Date: 01/23/25 Anesthesia Stop Time: 08:38 Summary Extremes of Age - Over 70 or under 1: VINEYARD WORKER Coding CPT Codes CPT Codes: ANESTH REPAIR OF HERNIA - 59641 ([id number]) P3 - PATIENT W/SEVERE SYS DISEASE, QK - EARLY LEARNING TEACHER 2-4 CNCRNT ANES PROC, QX - VINEYARD WORKER SVC W/ MD MED DIRECTION Additional Codes: Summary - Extremes of Age - Over 70 or under 1: VINEYARD WORKER ([id number])
--- NOTE | 2025-01-23 08:35 | W.PM.H&PU ---
History & Physical Update History & Physical Update H&P Reviewed and patient assessed: No changes noted
--- NOTE | 2025-01-23 08:35 | W.ANESCHARGE ---
Anesthesia Charges Start Date/Time Anesthesia Start Date: 01/23/25 Anesthesia Start Time: 07:30 Stop Date/Time Anesthesia Stop Date: 01/23/25 Anesthesia Stop Time: 08:38 Summary Extremes of Age - Over 70 or under 1: TRAINING PERSONNEL SUPERVISOR Coding CPT Codes CPT Codes: ANESTH REPAIR OF HERNIA - 05451 ([id number]) P3 - PATIENT W/SEVERE SYS DISEASE, QK - COLLEGE RECRUITER 2-4 CNCRNT ANES PROC, QX - TRAINING PERSONNEL SUPERVISOR SVC W/ MD MED DIRECTION Additional Codes: Summary - Extremes of Age - Over 70 or under 1: TRAINING PERSONNEL SUPERVISOR ([id number])
--- NOTE | 2025-01-23 08:37 | PM.GSPRC ---
Operative Note Date of procedure: 01/23/25 Pre-op diagnosis: Umbilical hernia Post-op diagnosis: Same Type of Procedure: Open umbilical hernia repair with placement of mesh Indications: Patient is a 74-year-old male who presented to clinic with a symptomatic umbilical hernia. Different treatment options were discussed including continued observation versus operative intervention. Risks and benefits of operative intervention were discussed at length with the patient. Risks included but was not limited to: Bleeding, infection, risk of damage to surrounding structures, possible need for additional procedures, risk of recurrence and postoperative complications such as pneumonia, pulmonary emboli or VA. All questions and concerns were addressed with the patient agreeing to proceed. Procedure Description: After discussing the risks and benefits of the procedure, the patient signed informed consent.? The operative site was marked and the patient was brought to the operating room and placed on the operating table in supine position.? Care was taken to pad the patient's pressure points.?? The patient was then intubated by anesthesia.?? The operative site was then prepped and draped in the usual sterile fashion.? A time-out was then performed. A curvilinear incision was made at the umbilicus. Dissection was carried down into the subcutaneous tissue using cautery. The hernia sac was encountered and care was taken to not enter it. Dissection was taken down to the fascia, and the umbilical stock was carefully dissected off of the hernia sac. Once the hernia sac was dissected out circumferentially, it was reduced. The fascial edges were then cleared circumferentially. The hernia was 2 cm in size and so the decision was made to use a piece of mesh. A preperitoneal pocket was created using a combination of blunt dissection and cautery. Hemostasis appeared adequate. Once the posterior fascia was clear, a piece of medium Ventralex ST hernia mesh was placed in the preperitoneal space with care to ensure that it laid flat. This was secured into place using 2 0 PDS interrupted sutures. The tails were then trimmed and the fascial opening was closed with a running 0 Vicryl. Local anesthetic was injected into the fascia, skin and subcutaneous tissues. The umbilicus was reapproximated to the fascia. The skin was then closed with running absorbable suture. A sterile dressing was then applied. ? The patient was then woken and transported to the recovery area in stable condition. ? The patient tolerated the procedure well. Findings: 2 cm umbilical hernia with incarcerated preperitoneal fat. Anesthesia: GETA Surgeon: Britney Hanks MD Estimated blood loss (mL): 5 Condition: stable Disposition: PACU
--- NOTE | 2025-01-23 09:23 | P.ANES_ITS ---
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
== END 2025-01-23 10:24 | disposition home or self-care (01) ==
PROVIDERS: PCP Internal Medicine; Visit Provider Surgery
PROC: (CPT 49592; principal; 2025-01-23 07:30)
DX: K42.0 Umbilical hernia with obstruction, without gangrene (principal)
CPT/HCPCS: 49592; 00750; 99100; C1781; J0330; J0665; J0690; J1100; J2405; J2704; J2710; J3010; J7120

== ENCOUNTER 2025-06-20 16:26 | Outpatient (CLI) | payer OTHER, SELFPAY | END 2025-06-20 16:27 | disposition home or self-care (01) | LOC: NFLDREF 16:27 | PROVIDERS: PCP Internal Medicine; Visit Provider Internal Medicine | DX: Z01.818 Encounter for other preprocedural examination (principal) | CPT/HCPCS: 80048 ==